=== PATIENT | male | born 1935 | race Caucasian/White ===

== ENCOUNTER 2020-06-05 23:07 | Emergency (ER) | payer OTHER ==
--- OUTSIDE RECORDS SUMMARY | 2020-06-05 23:10 | XMS REPORT | Continuity of Care Document ---
:1935 Author Organization [facility] t Address [address] [place] [address] Care Team Providers Name Role Phone Unavailable Unavailable Unavailable Payers Payer Name Policy Type Policy Number Effective Date Expiration Date S ource Problems This patient has no known problems. Allergies, Adverse Reactions, Alerts Allergy Allergy Status Severity Reaction(s) Onset Inactive Treating Comm ents Source Name Type Date Date Clinician Penicill DA Active [facility] ins 05-22 00:00: [address] Medications This patient has no known medications. Procedures This patient has no known procedures. Results Test Description Test Time Test Comments Results Result Comments Source - XR CHEST 1V 2020-05-24 07:37:00 [facility] : 1935 Sex: M Patient Name: JOSE MANUEL YEE Unit No: [id number] EXAMS: CPT CODE: [id number] XR CHEST 1V 91822 STUDY: Chest radiograph HISTORY: Status post ICD. COMPARISON: 05/23/2020 TECHNIQUE: Frontal view of the chest. SITE: C3 FINDINGS: Dual lead left chest pacemaker/ICD is in similar position. The patient has post median sternotomy. There appear to be clips projecting over the left heart as seen previously, correlate clinically. The cardiac silhouette is stable in size. There is no focal consolidation. There is no large pleural effusion or discernible pneumothorax. IMPRESSION: No evidence for acute pulmonary abnormality. Left dual-lead pacemaker/ICD placement in similar position. at 0737 Reported and signed by: Mariano Jaeger MD CC: Na Hare MD Technologist: Isael Miller, RT(R) Transcrpt Date/Tm/Trnsp: 05/24/2020 (0737) [email or web address] Orig Print D/T: S: 05/24/2020 (0741) [facility] NAME: JOSE MANUEL YEE [id number] PHYS: [place] [address] : 1935 AGE: 85 SEX: M LOC: Z.360 A PHONE #: [phone] EXAM DATE: 05/24/2020 STATUS: ADM IN FAX #: [phone] RADIOLOGY NO: PAGE 1 Signed Report BASIC METABOLIC PANEL 2020-05-24 06:47:00 Test Item Value Reference Range Interpretation Comme nts SODIUM (test code = NA) 140 MMOL/L 137-145 N POTASSIUM (test code = K) 4.4 MMOL/L 3.5-5.1 N CHLORIDE (test code = CL) 106 MMOL/L 98-107 N CARBON DIOXIDE (test code = CO2) 25 MMOL/L 22-30 N GLUCOSE (test code = GLU) 99 MG/DL 74-106 N BLOOD UREA NITROGEN (test code = 19 MG/DL 9-20 N BUN) GLOMERULAR FILTRATION RATE (test > 60 Reporting units: ml/min/1.73 code = GFR) m2 (Modified M DRD Formula)Referen ce Range: > or = 60 ml/min/1.7 3 m2 CREATININE (test code = CREAT) 1.10 MG/DL 0.66-1.25 N CALCIUM (test code = CA) 9.1 MG/DL 8.4-10.2 N CBC W/AUTO [id number] 06:21:00 Test Item Value Reference Range Interpretation Comments WHITE BLOOD CELL (test code = 5.2 K/MM3 3.8-9.8 N WBC) RED BLOOD CELL (test code = 4.01 M/MM3 3.95-5.67 N RBC) HEMOGLOBIN (test code = HGB) 13.0 G/DL 12.4-16.7 N HEMATOCRIT (test code = HCT) 38.3 % 35.9-49.5 N MEAN CELL VOLUME (test code = 96 fL 81.7-96.1 N MCV) MEAN CELL HGB (test code = MCH) 32.4 pg 27.6-33.2 N MEAN CELL HGB CONCETRATION 33.9 % 32.9-35.5 N (test code = MCHC) RED CELL DISTRIBUTION WIDTH 13.1 % 12.1-15.2 N (test code = RDW) PLATELET COUNT (test code = 94 K/MM3 129-368 L PLT) MEAN PLATELET VOLUME (test code 9.0 fl 7.4-10.4 N = MPV) NEUTROPHIL % (test code = NT%) 59.7 % 43-75 N IMMATURE GRANULOCYTE % (test 0.2 % 0.0-2.0 N code = IG%) LYMPHOCYTE % (test code = LY%) 25.7 % 14-44 N MONOCYTE % (test code = MO%) 12.5 % 4-13 N EOSINOPHIL % (test code = EO%) 1.5 % 0-6 N BASOPHIL % (test code = BA%) 0.4 % 0-2 N NUCLEATED RBC % (test code = 0.0 % 0-1.0 N NRBC%) NEUTROPHIL # (test code = NT#) 3.09 K/mm3 2.0-7.6 N IMMATURE GRANULOCYTE # (test 0.01 x10 3/uL 0-0.03 N code = IG#) LYMPHOCYTE # (test code = LY#) 1.33 K/mm3 1.0-3.8 N MONOCYTE # (test code = MO#) 0.65 K/mm3 0.1-0.8 N EOSINOPHIL # (test code = EO#) 0.08 K/mm3 0.0-0.2 N BASOPHIL # (test code = BA#) 0.02 K/mm3 0.0-0.2 N NUCLEATED RBC # (test code = 0.00 K/mm3 0.0-0.1 N NRBC#) - XR CHEST [id number] 10:37:00 [facility] : 1935 Sex: M Patient Name: JOSE MANUEL YEE Unit No: [id number] EXAMS: CPT CODE: [id number] XR CHEST 1V 91697 Location Code: B2 CHEST AP HISTORY: Pacemake r placement COMPARISON: None available FINDINGS: Dual-lead pacemaker/ICD in place with leads at the right atrium and right ventricle. There is mild atherosclerosis at aortic arch. Nonspecific curvilinear calcification superimposes the ventricular shadow (? Coronary calcification). Cardiomediastinal silhouette is otherwise within normal limits. No evidence of consolidation, effusion, or pneumothorax is present. Sternal wires are noted. IMPRESSION: 1. Dual lead pacemaker/ICD.2. No acute findings otherwise. at 1037 Reported and signed by: Alanis Armando MD CC: Na Hare MD Technologist: Mukul Villaseñor (RT) Transcrpt Date/Tm/Trnsp: 05/23/2020 (1037) [id number] Orig Print D/T: S: 05/23/2020 (1040) [facility] NAME: JOSE MANUEL YEE [id number] PHYS: [place] [address] : 07/1934 AGE: 85 SEX: M LOC: [id number] Alexander PHONE #: [phone] EXAM DATE: 05/23/2020 STATUS: ADM IN FAX #: [phone] RADIOLOGY NO: PAGE 1 Signed ReportBASIC METABOLIC PANEL 2020-05-23 07:01:00 Test Item Value Reference Range Interpretation Comments SODIUM (test code = 141 MMOL/L 137-145 N NA) POTASSIUM (test code = 4.2 MMOL/L 3.5-5.1 N K) CHLORIDE (test code = 106 MMOL/L 98-107 N CL) CARBON DIOXIDE (test 27 MMOL/L 22-30 N code = CO2) GLUCOSE (test code = 111 MG/DL 74-106 H GLU) BLOOD UREA NITROGEN 18 MG/DL 9-20 N (test code = BUN) GLOMERULAR FILTRATION > 60 Report ing units: RATE (test code = GFR) ml/mi n/1.73 m2 (Modified MDRD Formula)Referen ce Range: > or = 6 0 ml/min/1.73 m2 CREATININE (test code 1.00 MG/DL 0.66-1.25 N = CREAT) CALCIUM (test code = 9.5 MG/DL 8.4-10.2 N CA) Comments to Brimmer Blocker: NURSE WILL BRING SPECIMEN TO LABIs this a LINE draw? N LIPID PROFILE (CORONARY RISK)2020-05-23 07:01:00 Test Item Value Reference Range Interpretation Comments TRIGLYCERIDES (test 63 MG/DL TRIGLYCE RIDES code = TRIG) REFERENCE RANGE:Normal: < 150 mg/dLBorderline High: 150-199 mg/dLHi gh: 200-499 mg/dLVe ry High: >=500 mg/ dL CHOLESTEROL (test code 141 MG/DL <200 = CHOL) HDL CHOLESTEROL (test 55 MG/DL 40-59 N code = HDL) LIPOPROTEIN LDL (test 59 MG/DL 0-99 N code = LDL) OPTIMAL........ .<100 mg/dLNEAR OPTIMAL/ABOVE OPTIMAL........ .100-12 9 mg/dL BORDERLINE HIGH.........13 0-159 mg/dL HIGH.........16 0-189 mg/dL VERY HIGH...... ...>/= 190 mg/dL Comments to Brimmer Blocker: NURSE WILL BRING SPECIMEN TO LABIs this a LINE draw? N [id number] 07:01:00 Test Item Value Reference Range Interpretation Comments MAGNESIUM (test code = MAG) 2.1 MG/DL 1.6-2.3 N Comments to Brimmer Blocker: NURSE WILL BRING SPECIMEN TO LABIs this a LINE draw? N PROTHROMBIN [id number] 07:00:00 Test Item Value Reference Range Interpretation Comments PROTHROMBIN TIME PATIENT 13.0 9.5-12.7 H (test code = PTP) INTERNATIONAL NORMAL RATIO 1.2 0.86-1.14 H T he INR is to be used (test code = INR) only for m onitoring oral anticoagulantth erapy. INDICATION INR VALUE ------- ------- -----1. Prophylaxis, d eep venous thrombos is, including high risk surgery. 2.0 - 3.0 2. Prophylaxis, de ep venous thrombos is, hip surgery, tr eatment for deep venous thrombosis or pulmonary preve ntion of systemic embolism in pat ients with valvula r heart disease, atrial fibrillation, tissue heart va lve, or acute myocardia l infarction. 2.0 - 3.0 3. Mechanical pros thesis heart valves, recurrent syste monique embolism. 3.0 - 4.5 Comments to Brimmer Blocker: NURSE WILL BRING SPECIMEN TO LABPTT ACTIVATED 2020-05-23 07:00:00 Test Item Value Reference Range Interpretation Comments PTT ACTIVATED (test code = APTT) 31.9 SECONDS 25.1-36.5 N Comments to Brimmer Blocker: NURSE WILL BRING SPECIMEN TO LABBASIC METABOLIC PANEL 2020-05-23 06:51:00 Test Item Value Reference Range Interpretation Comments SODIUM (test code = 141 MMOL/L 137-145 N NA) POTASSIUM (test code = 4.2 MMOL/L 3.5-5.1 N K) CHLORIDE (test code = 106 MMOL/L 98-107 N CL) CARBON DIOXIDE (test 27 MMOL/L 22-30 N code = CO2) GLUCOSE (test code = 111 MG/DL 74-106 H GLU) BLOOD UREA NITROGEN 18 MG/DL 9-20 N (test code = BUN) GLOMERULAR FILTRATION > 60 Report ing units: RATE (test code = GFR) ml/mi n/1.73 m2 (Modified MDRD Formula)Referen ce Range: > or = 6 0 ml/min/1.73 m2 CREATININE (test code 1.00 MG/DL 0.66-1.25 N = CREAT) CALCIUM (test code = 9.5 MG/DL 8.4-10.2 N CA) Comments to Brimmer Blocker: NURSE WILL BRING SPECIMEN TO LABIs this a LINE draw? N LIPID PROFILE (CORONARY RISK)2020-05-23 06:51:00 Test Item Value Reference Range Interpretation Comments TRIGLYCERIDES (test 63 MG/DL TRIGLYCE RIDES code = TRIG) REFERENCE RANGE:Normal: < 150 mg/dLBorderline High: 150-199 mg/dLHi gh: 200-499 mg/dLVe ry High: >=500 mg/ dL CHOLESTEROL (test code 141 MG/DL <200 = CHOL) HDL CHOLESTEROL (test 55 MG/DL 40-59 N code = HDL) LIPOPROTEIN LDL (test MG/DL 0-99 code = LDL) Comments to Brimmer Blocker: NURSE WILL BRING SPECIMEN TO LABIs this a LINE draw? N [id number] 06:51:00 Test Item Value Reference Range Interpretation Comments MAGNESIUM (test code = MAG) 2.1 MG/DL 1.6-2.3 N Comments to Brimmer Blocker: NURSE WILL BRING SPECIMEN TO LABIs this a LINE draw? N CBC W/AUTO [id number] 06:28:00 Test Item Value Reference Range Interpretation Comments WHITE BLOOD CELL (test code = 3.6 K/MM3 3.8-9.8 L WBC) RED BLOOD CELL (test code = 4.10 M/MM3 3.95-5.67 N RBC) HEMOGLOBIN (test code = HGB) 13.4 G/DL 12.4-16.7 N HEMATOCRIT (test code = HCT) 40.2 % 35.9-49.5 N MEAN CELL VOLUME (test code = 98 fL 81.7-96.1 H MCV) MEAN CELL HGB (test code = MCH) 32.7 pg 27.6-33.2 N MEAN CELL HGB CONCETRATION 33.3 % 32.9-35.5 N (test code = MCHC) RED CELL DISTRIBUTION WIDTH 13.1 % 12.1-15.2 N (test code = RDW) PLATELET COUNT (test code = 90 K/MM3 129-368 L PLT) MEAN PLATELET VOLUME (test code 8.8 fl 7.4-10.4 N = MPV) NEUTROPHIL % (test code = NT%) 63.6 % 43-75 N IMMATURE GRANULOCYTE % (test 0.0 % 0.0-2.0 N code = IG%) LYMPHOCYTE % (test code = LY%) 24.1 % 14-44 N MONOCYTE % (test code = MO%) 10.9 % 4-13 N EOSINOPHIL % (test code = EO%) 1.1 % 0-6 N BASOPHIL % (test code = BA%) 0.3 % 0-2 N NUCLEATED RBC % (test code = 0.0 % 0-1.0 N NRBC%) NEUTROPHIL # (test code = NT#) 2.27 K/mm3 2.0-7.6 N IMMATURE GRANULOCYTE # (test 0.00 x10 3/uL 0-0.03 N code = IG#) LYMPHOCYTE # (test code = LY#) 0.86 K/mm3 1.0-3.8 L MONOCYTE # (test code = MO#) 0.39 K/mm3 0.1-0.8 N EOSINOPHIL # (test code = EO#) 0.04 K/mm3 0.0-0.2 N BASOPHIL # (test code = BA#) 0.01 K/mm3 0.0-0.2 N NUCLEATED RBC # (test code = 0.00 K/mm3 0.0-0.1 N NRBC#) Comments to Brimmer Blocker: NURSE WILL BRING SPECIMEN TO LABIs this a LINE draw? N COVID 19 Asymptomatic IH [id number] 04:56:00 Test Item Value Reference Range Interpretation Comments COVID 19 NEGATIVE Negative "Negative resul ts from Asymptomatic IH AG patients with symptom (test code = onset beyondfiv e days, COVNONPUIAG) should be [place] as presumptive, andconfirmation with a molecular assay , if necessary forpa tient management may be performed. Nega tive results do notr ule out COVID-19 and sh ould not be used as the sole basisfor treatm ent or patient managem ent decisions, includinginfect ion control decisio ns. Negative result s should beconsidered in the context of a pa tients recent exposure s,history, and the presenc e of clinical signs and symptomsconsist ent with COVID-19.This t est detects both vi able andnon-viable S ARS-CoV and SARS CoV-2. Test performance dep endson the amount of virus (antigen) in the sample."
[2020-06-05 23:50] LABS: Absolute Lymphocytes (CBC) 1.2 K/uL (0.7-4.9); Basophils % 0.3 % (0-1.3); Hematocrit 37.6 % (39.6-49.0); Lymphocytes % 30.5 % (15.3-44.8); MPV 7.5 fL (7.6-11.3); Protime INR 1.49; RBC Red Blood Cell Count 3.97 M/uL (4.33-5.43)
[2020-06-06 00:02] LABS: ALT/SGPT 26 U/L (12-78); AST/SGOT 19 U/L (15-37); Alkaline Phosphatase 91 U/L (45-117); BUN Blood Urea Nitrogen 16 mg/dL (7-18); Bicarbonate 29 mmol/L (21-32); Bilirubin Direct 0.2 mg/dL (0-0.2); Bilirubin Total 0.6 mg/dL (0.2-1.0); Glucose Level 119 mg/dL (74-106); NT PRO-BNP 106 pg/mL (<450); Potassium 3.7 mmol/L (3.5-5.1); Sodium Level 143 mmol/L (136-145); Troponin (Emerg Dept Use Only) < 0.02 ng/mL (0.0-0.045)
--- NOTE | 2020-06-06 00:57 | EDPHYS ---
Physician Documentation [facility] Name: Julius Pink Age: 85 yrs Sex: Male : 1935 Arrival Date: 06/05/2020 Time: 23:10 Bed 6 Private MD: ED Physician Rufino Machado HPI: 06/06 00:16 This 85 yrs old Male presents to ER via EMS with complaints of General jr8 Weakness. 00:16 Onset: The symptoms/episode began/occurred suddenly, today. Patient reports PM jr8 placement 2 weeks ago. This evening he suddenly reports feeling his heart racing with CP. . Historical: - Allergies: 06/05 23:15 PENICILLINS; rr5 - Home Meds: 23:15 amlodipine 10 mg tab .5 tab once daily [Active]; Xarelto 20 mg oral tab 1 tab once rr5 daily [Active]; losartan 100 mg oral tab 1 tab once daily [Active]; turmeric 2000 2x aday [Active]; aspirin 81 mg Oral chew 1 tab once daily [Active]; Centrum Silver oral oral [Active]; Fish Oil oral oral [Active]; - PMHx: 23:15 Hypertension; rr5 - PSHx: 23:15 triple bypass; pacemaker/defibrillator; rr5 - Immunization history:: Adult Immunizations unknown. - Social history:: Smoking status: unknown Patient/guardian denies using street drugs. ROS: 06/06 00:17 Neck: Negative for injury, pain, and swelling, Respiratory: Negative for shortness of jr8 breath, cough, wheezing, and pleuritic chest pain, Abdomen/GI: Negative for abdominal pain, nausea, vomiting, diarrhea, and constipation, MS/Extremity: Negative for injury and deformity, Skin: Negative for injury, rash, and discoloration, Neuro: Negative for headache, weakness, numbness, tingling, and seizure. Cardiovascular: Positive for chest pain, palpitations. Exam: 00:17 Neck: Trachea midline, no thyromegaly or masses palpated, and no cervical jr8 lymphadenopathy. Supple, full range of motion without nuchal rigidity, or vertebral point tenderness. No Meningismus. Respiratory: Lungs have equal breath sounds bilaterally, clear to auscultation and percussion. No rales, rhonchi or wheezes noted. No increased work of breathing, no retractions or nasal flaring. Abdomen/GI: Soft, non-tender, with normal bowel sounds. No distension or tympany. No guarding or rebound. No evidence of tenderness throughout. Back: No spinal tenderness. No costovertebral tenderness. Full range of motion. MS/ Extremity: Pulses equal, no cyanosis. Neurovascular intact. Full, normal range of motion. Neuro: Awake and alert, GCS 15, oriented to person, place, time, and situation. Cranial nerves II-XII grossly intact. Motor strength 5/5 in all extremities. Sensory grossly intact. Cerebellar exam normal. Normal gait. 00:17 Chest/axilla: Inspection: PM upper L chest wall ecchymosis with surgical wound clean,dry, and intact, Palpation: is normal. 00:17 Cardiovascular: Rate: actual rate is 95 bpm, PM with PVCs, Rhythm: irregular. Vital Signs: 06/05 23:11 Temp 97.8; Weight 86.18 kg; Height 5 ft. 8 in. (172.72 cm); Pain 0/10; rr5 23:21 BP 177 / 72; Pulse 58; Resp 20; Pulse Ox 96% ; ea 06/06 00:38 BP 124 / 59; Pulse 59; Resp 19; Pulse Ox 98% ; rr5 01:00 BP 123 / 61; Pulse 57; Resp 18; Pulse Ox 98% on R/A; ea 06/05 23:11 Body Mass Index 28.89 (86.18 kg, 172.72 cm) rr5 MDM: 06/05 23:20 Patient medically screened. 8 06/06 00:19 Data reviewed: vital signs, nurses notes, lab test result(s), EKG, radiologic studies. 8 Data interpreted: phototypesetting equipment monitor: rate is 94 beats/min, rhythm is irregular, Pulse oximetry: on room air is 96 %. Interpretation: acceptable. 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 ED course: Patients pacemaker firing appropriately on ECG. No lab or imaging abnormalities. ECG with occasional premature beats. Patient feeling well at this time. Discussed with him that it could be the premature beats or other arrhythmia but none seen on ECG at this time. Recommend f/u with Dr. Hare which he has appointment with on Monday. Knows to come back if worse . 06/05 23:20 Order name: Basic Metabolic Panel 06/05 23:20 Order name: CBC with Diff 06/05 23:20 Order name: LFT's 06/05 23:20 Order name: Magnesium; Complete Time: 00:03 06/05 23:20 Order name: NT PRO-BNP; Complete Time: 00:03 06/05 23:20 Order name: PT-INR; Complete Time: 00:03 06/05 23:20 Order name: Troponin (emerg Dept Use Only); Complete Time: 00:03 06/05 23:20 Order name: EKG; Complete Time: 23:21 06/05 23:20 Order name: Cardiac monitoring; Complete Time: 23:20 06/05 23:20 Order name: EKG - Nurse/Tech; Complete Time: 23:20 06/05 23:20 Order name: IV Saline Lock; Complete Time: 23:35 06/05 23:20 Order name: Labs collected and sent; Complete Time: 23:21 06/05 23:20 Order name: O2 Per Protocol; Complete Time: 23:23 06/05 23:20 Order name: O2 Sat Monitoring; Complete Time: 23:23 06/05 23:20 Order name: XRAY Chest (1 view) [facility] 06/05 23:20 Order name: EKG; Complete Time: 23:21 [facility] 06/05 23:20 Order name: Cardiac monitoring; Complete Time: 23:34 [facility] 06/05 23:20 Order name: EKG - Nurse/Tech; Complete Time: 23:34 [facility] 06/05 23:20 Order name: IV Saline Lock; Complete Time: 23:34 [facility] 06/05 23:20 Order name: Basic Metabolic Panel; Complete Time: 00:03 EDMS 06/05 23:20 Order name: CBC with Automated Diff; Complete Time: 00:03 EDMS 06/05 23:20 Order name: Liver (Hepatic) Function; Complete Time: 00:03 EDMS Administered Medications: No medications were administered Disposition: 01:35 Co-signature as Attending Physician, Rufino Machado MD. rn Disposition: 06/06/20 00:57 Discharged to Home. Impression: Palpitations, Weakness. - Condition is Stable. - Discharge Instructions: Holter Monitoring, Palpitations, Weakness. - Medication Reconciliation Form, Thank You Letter, Antibiotic Education, Prescription Opioid Use form. - Follow up: Na Hare MD; When: 2 - 3 days; Reason: Recheck today's complaints, Continuance of care, Re-evaluation by your physician. - Problem is new. - Symptoms have improved. Signatures: Dispatcher [employer] EDMS Rufino Machado MD MD rn Roszak, Josh, PA PA jr8 Hortencia Dixon RN RN ea Roque, Raymond, RN RN rr5 Corrections: (The following items were deleted from the chart) 06/05 23:21 23:21 BASIC METABOLIC PANEL+C.LAB.BRZ ordered. EDLA EDLA 23:21 23:21 CBC+H.LAB.BRZ ordered. EDLA EDMS 23:21 23:21 HEPATIC FUNCTION+C.LAB.BRZ ordered. EDLA EDMS 23:21 23:21 MAGNESIUM+C.LAB.BRZ ordered. EDLA EDMS 23:21 23:21 PROBNP+C.LAB.BRZ ordered. EDLA EDMS 23:21 23:21 PROTIME (+INR)+COAG.LAB.BRZ ordered. EDLA EDMS 23:21 23:21 TROPONIN (EMERG DEPT USE ONLY)+C.LAB.BRZ ordered. [facility] EDLA 23:25 23:21 Chest Single View+RAD.RAD.BRZ ordered. [facility] EDLA 23:34 23:20 Labs collected and sent ordered. jr8 rr5 23:34 23:20 Oxygen Per Protocol ordered. jr8 rr5 23:35 23:20 O2 Sat Monitoring ordered. jr8 rr5 06/06 01:13 00:57 06/06/2020 00:57 Discharged to Home. Impression: Palpitations; Weakness. ea Condition is Stable. Forms are Medication Reconciliation Form, Thank You Letter, Antibiotic Education, Prescription Opioid Use. Follow up: Na Hare; When: 2 - 3 days; Reason: Recheck today's complaints, Continuance of care, Re-evaluation by your physician. Problem is new. Symptoms have improved. jr8
--- NOTE | 2020-06-06 00:57 | ER ---
Nurse's Notes [facility] Name: Julius Pink Age: 85 yrs Sex: Male : 1935 Arrival Date: 06/05/2020 Time: 23:10 Bed 6 Private MD: Diagnosis: Palpitations;Weakness Presentation: 06/05 23:11 Coronavirus screen: At this time, the client does not indicate any symptoms associated ea with coronavirus-19. Ebola Screen: No symptoms or risks identified at this time. Initial Sepsis Screen: Does the patient meet any 2 criteria? No. Patient's initial sepsis screen is negative. Does the patient have a suspected source of infection? No. Patient's initial sepsis screen is negative. Risk Assessment: Do you want to hurt yourself or someone else? Patient reports no desire to harm self or others. Onset of symptoms was June 05, 2020. 23:11 Acuity: WILMA 3 ea 23:11 Method Of Arrival: EMS: [facility] ea 23:11 Chief complaint: EMS states: complaint of general weakness started tonight. had put rr5 pacemaker/defibrillator in placed 2 weeks ago. denies pain, no fever. Historical: - Allergies: 23:15 PENICILLINS; rr5 - Home Meds: 23:15 amlodipine 10 mg tab .5 tab once daily [Active]; Xarelto 20 mg oral tab 1 tab once rr5 daily [Active]; losartan 100 mg oral tab 1 tab once daily [Active]; turmeric 2000 2x aday [Active]; aspirin 81 mg Oral chew 1 tab once daily [Active]; Centrum Silver oral oral [Active]; Fish Oil oral oral [Active]; - PMHx: 23:15 Hypertension; rr5 - PSHx: 23:15 triple bypass; pacemaker/defibrillator; rr5 - Immunization history:: Adult Immunizations unknown. - Social history:: Smoking status: unknown Patient/guardian denies using street drugs. Screenin:10 Abuse screen: Denies threats or abuse. Nutritional screening: No deficits noted. ea Tuberculosis screening: No symptoms or risk factors identified. Fall Risk None identified. Assessment: 23:30 General: Appears in no apparent distress. comfortable, Behavior is calm, cooperative, rr5 appropriate for age. Pain: Denies pain. Neuro: Level of Consciousness is awake, alert, obeys commands, Oriented to person, place, time, Reports weakness. Cardiovascular: Reports palpitations, Capillary refill < 3 seconds Patient's skin is warm and dry. Respiratory: Airway is patent Respiratory effort is even, unlabored, Respiratory pattern is regular, symmetrical. GI: No signs and/or symptoms were reported involving the gastrointestinal system. : No signs and/or symptoms were reported regarding the genitourinary system. EENT: No signs and/or symptoms were reported regarding the EENT system. Derm: Skin is intact, is healthy with good turgor, Skin temperature is warm Bruising that is dark purple, yellow, on chest. Musculoskeletal: Capillary refill < 3 seconds. 06/06 00:32 Reassessment: Emili () [id number]. bb 00:38 Reassessment: Patient appears in no apparent distress at this time. Patient is alert, rr5 oriented x 3, equal unlabored respirations, skin warm/dry/pink. awaiting for results. 01:12 Reassessment: Patient and/or family updated on plan of care and expected duration. Pain ea level reassessed. Patient is alert, oriented x 3, equal unlabored respirations, skin warm/dry/pink. Discharge instruction given to patient, verbalized the understanding of instruction. Pt left ED ambulatory tolerating well. Vital Signs: 06/05 23:11 Temp 97.8; Weight 86.18 kg; Height 5 ft. 8 in. (172.72 cm); Pain 0/10; rr5 23:21 BP 177 / 72; Pulse 58; Resp 20; Pulse Ox 96% ; ea 06/06 00:38 BP 124 / 59; Pulse 59; Resp 19; Pulse Ox 98% ; rr5 01:00 BP 123 / 61; Pulse 57; Resp 18; Pulse Ox 98% on R/A; ea 06/05 23:11 Body Mass Index 28.89 (86.18 kg, 172.72 cm) rr5 ED Course: 06/05 23:10 Patient arrived in ED. ea 23:12 Triage completed. ea 23:12 Arm band placed on right wrist. Patient placed in an exam room, on a stretcher, on ea pulse oximetry. 23:12 Patient has correct armband on for positive identification. Placed in gown. Bed in low ea position. Call light in reach. 23:17 Rodriguez, Louie, RN is Primary Nurse. rr5 23:19 Kin Hardwick PA is PHCP. jr8 23:19 Rufino Machado MD is Attending Physician. jr8 23:20 EKG done, by ED staff, reviewed by Kin SEARS. rr5 23:22 Maintain EMS IV. Dressing intact. Good blood return noted. Site clean \T\ dry. Gauge \T\ ea site: 20G RAC. 23:49 XRAY Chest (1 view) In Process Unspecified. EDMS 06/06 00:56 Na Hare MD is Referral Physician. jr8 01:11 No provider procedures requiring assistance completed. IV discontinued, intact, ea bleeding controlled, No redness/swelling at site. Pressure dressing applied. Administered Medications: No medications were administered Outcome: 00:57 Discharge ordered by . jr8 01:12 Discharged to home ambulatory, with family. ea 01:12 Condition: stable 01:12 Discharge instructions given to patient, Instructed on discharge instructions, follow up and referral plans. Demonstrated understanding of instructions, follow-up care. 01:13 Patient left the ED. ea Signatures: Dispatcher [employer] EDMA Jessica Guardado RN RN Kin Chambers PA PA jr8 Hortencia Dixon RN RN ea Roque, Raymond, RN RN rr5 Corrections: (The following items were deleted from the chart) 00:10 06/05 23:30 Derm: Skin is intact, is healthy with good turgor, Skin temperature is warm rr5 rr5 06/06 00:10 06/05 23:30 Musculoskeletal: Capillary refill < 3 seconds, rr5 rr5
[2020-06-06 01:19] VITALS: TEMP 97.8
[2020-06-06 01:21] VITALS: O2SAT 98
[2020-06-06 01:23] VITALS: BP 123/61
--- NOTE | 2020-06-06 08:29 | EKG ---
Test Date: 2020-06-05 Test Time: 23:13:44 Operator Weapon Locating Radar: RR MEASUREMENT RESULTS: Intervals: Rate: 65 TN: QRSD: 160 QT: 464 QTc: 482 Wells: P: TN: QRS: -90 T: 80 INTERPRETIVE STATEMENTS: Ventricular-paced rhythm with occasional premature ventricular complexes Abnormal ECG No previous ECG available for comparison Electronically Signed On 06-06-20 08:28:48 FIRE CHIEF'S AIDE by Juan Luis Gomez
--- NOTE | 2020-06-06 11:28 | RAD REPORT ---
EXAM DESCRIPTION: RAD - Chest Single View - 06/05/2020 11:49 pm CLINICAL HISTORY: CHEST PAIN Chest pain. COMPARISON: No comparisons FINDINGS: Portable technique limits examination quality. The lungs are grossly clear. The heart is normal in size. Dual lead pacer device is present. Sternoto my wires are present. IMPRESSION: No acute intrathoracic process suspected.
== END 2020-06-06 01:13 | disposition home or self-care (01) ==
LOC: ER 23:07
DX: R53.1 Weakness (principal); I10 Essential (primary) hypertension; Z95.810 Presence of automatic (implantable) cardiac defibrillator; Z95.1 Presence of aortocoronary bypass graft; Z88.0 Allergy status to penicillin; Z79.01 Long term (current) use of anticoagulants; Z79.82 Long term (current) use of aspirin
CPT/HCPCS: 36415; 71045; 80048; 80076; 83735; 83880; 84484; 85025; 85610; 93005; 99284

== ENCOUNTER 2022-09-26 23:52 | Emergency (ER) | payer OTHER ==
--- OUTSIDE RECORDS SUMMARY | 2022-09-26 23:55 | XMS REPORT | Continuity of Care Document ---
:1935 Author Organization [facility] t Address [address] [facility] [address] [place] [address] Care Team Providers Name Role Phone Ochoa Alvaro Rasheed Primary Care Physician Na Hare Attending Clinician Unavailable JULIUS AVALOS Attending Clinician Unavailable Julius Avalos MD Attending Clinician Doctor Unassigned, [place] Attending Clinician Unavailable VENKATA ZAMARRIPA Attending Clinician Unavailable Nurse, Adc Pob Immunization Attending Clinician Unavailable Venkata Zamarripa DO Attending Clinician JUANITA SOTO Attending Clinician Unavailable KNOW, DOES_NOT Admitting Clinician Unavailable JULIUS AVALOS Admitting Clinician Unavailable Julius Avalos MD Admitting Clinician Payers Payer Name Policy Type Policy Number Effective Date Expiration Date S [facility] [id number] 2020 [facility] 00:00:00 PPO Problems Condition Condition Condition Status Onset Resolution Last Treating Co mments Source Name Details Category Date Date Treatment Clinician Date No known No known Disease Unive rs active active ity of problems problems [facility] Allergies, Adverse Reactions, Alerts Allergy Allergy Status Severity Reaction(s) Onset Inactive Treating Comm ents Source Name Type Date Date Clinician [place]ic[place] DA Active U UNKNOWN [facility] Penicill DA Active U [facility]- [facility] Sulfa Propensi Active Swelling Hands and Uni vers (Sulfona ty to 7-19 feet ity of mide adverse 00:00: swe [place] Antibiot reaction 00 Medica l ics) s to Branch drug Sulfa Propensi Active Swelling Hands and Uni vers (Sulfona ty to 7-19 feet ity of mide adverse 00:00: swe [place] Antibiot reaction 00 Medica l ics) s to Branch drug SULFA Drug Active Med Swelling Univers (SULFONA Class 7-19 ity of MIDE 00:00: [place] ANTIBIOT 00 Medical ICS) Branch Penicill Propensi Active Hives Univer s ins ty to 6-20 ity of adverse 00:00: [place] reaction 00 Medical s to Branch drug PENICILL Drug Active Med Hives Univers INS Class 6-20 ity of 00:00: [place] 00 Medical Branch Penicill Propensi Active Hives Univer s ins ty to 6-20 ity of adverse 00:00: [place] reaction 00 Medical s to Branch drug Social History Social Habit Start Date Stop Date Quantity Comments Source Exposure to 2022-07-17 2022-07-27 Not sure [facility] SARS-CoV-2 (event) 00:00:00 15:48:00 [facility] Alcohol intake 2015-10-19 2015-10-19 0 /d [facility] 00:00:00 00:00:[address] [facility] Sex Assigned At [birth year] [facility] 00:00:00 00:00:[address] [facility] Smoking Status Start Date Stop Date Source Never smoked tobacco [facility] Medications Ordered Filled Start Stop Current Ordering Indication Dosage Frequency Signature Comments Components Source Medication Medication Date Date Medication? Clinician (SIG) Name Name neomycin-po 2022- No PRN, Unive rs lymyxin-dex 5-10 05-10 Starting ity of amethasone 16:09: 16:13 [place] (MAXITROL) 00 :17 08/03/22 at Med ical 3.5 1109, Branch mg/g-10,000 Until Mon unit/g-0.1 5/10/23 at % 1113, ophthalmic Routine, ointment Intra-op carbachoL 2022- No PRN, Univers (MIOSTAT) 08-03 Starting ity o f 0.01 % 16:06: 16:13 on Mon intraocular 00 :17 08/03/22 at Dc dical injection 1106, Branch Until Mon08/03/22 at 1113, Routine, Intra-op sodium 2022- No PRN, Univers chloride 08-03 Starting ity of (NS) 16:06: 16:13 on Mon [place] injection 00 :17 08/03/22 at [facility] 1106, Branch Until Mon08/03/22 at 1113, Routine, Intra-op dexamethaso 2022- No PRN, Unive rs ne 08-03 Starting ity of (DECADRON 16:06: 16:13 on Mon PHOSPHATE) 00 :17 08/03/22 at [facility] ical injection 1106, Branch Until Mon08/03/22 at 1113, Routine, Intra-op ceFAZolin 2022- No PRN, Univers (ANCEF) 08-03 Starting ity of injection 16:06: 16:13 on Mon 00 :17 08/03/22 at [facility] 1106, Branch Until Mon08/03/22 at 1113, TEVIN, Intra-op EPINEPHrine 2022- No PRN, Unive rs 1:1,000 (1 08-03 Starting ity of mg/mL) 15:58: 16:13 on Mon (ADRENALIN) 00 :17 08/03/22 at Dc dical injection 1058, Branch Until Mon08/03/22 at 1113, Routine, Intra-op balanced 2022- No PRN, Univers salt irrig 08-03 Starting ity of soln comb1 15:58: 16:13 on [place] (BSS PLUS) 00 :17 08/03/22 at [facility] ical ophthalmic 1058, Branch solution Until Mon 500 mL bag 08/03/22 at 1113, Routine, Intra-op chondroitin 2022- No PRN, Unive rs sulf-sod 08-03 Starting ity of hyaluronate 15:55: 16:13 on Mon [place] (DUOVISC 00 :17 08/03/22 at Medic al VISCO 1055, Branch ELASTIC) Until Mon intraocular 08/03/22 at injection 1113, Routine, Intra-op water for 2022- No PRN, Univers irrigation 08-03 05-10 Starting ity of irrigation 15:49: 16:13 on [place] solution 00 :17 08/03/22 at Medic al 1049, Branch Until Mon08/03/22 at 1113, Routine, Intra-op Hyaluronida 2022- No PRN, Unive rs se, Human 08-03- Starting ity o f Recomb. 15:44: 16:13 on Mon [place] (HYLENEX) 00 :17 08/03/22 at [facility] vibha injection 1044, Branch Until Mon08/03/22 at 1113, Routine, Intra-op eye block 2022- No PRN, Univers syringe 11 08-03-10 Starting ity of mL 15:44: 16:13 on Mon [place] 00 :17 08/03/22 at Medical 1044, Branch Until Mon08/03/22 at 1113, Intra-op cyclopent 2022- No .5mL 0.5 mL, Univ ers 1%-tropic 08-03-10 Left Eye, ity of 1%-phenyl 14:45: 14:45 ONCE, 1 [place] 2.5%-ketor 00 :00 dose, On Medic al 0.5% [facility] Branch (MYDRIATIC 08/03/22 at #5) 0945, ophthalmic Routine, solution DSU Pre-op syringe 0.5 mL lactated 2022- No 1000mL at 42 Unive rs ringers IV 5-10 05-10 mL/hr, ity of infusion 14:45: 14:44 1,000 mL, [place] 1,000 mL 00 :00 IV Medical Infusion, Branch ONCE, 1 dose, On Mon08/03/22 at 0945, Routine, DSU Pre-op cyclopent 2022- No .5mL 0.5 mL, Univ ers 1%-tropic 08-03 05-10 Left Eye, ity of 1%-phenyl 14:45: 14:45 ONCE, 1 [place] 2.5%-ketor 00 :00 dose, On Medic al 0.5% Mon Branch (MYDRIATIC 08/03/22 at #5) 0945, ophthalmic Routine, solution DSU Pre-op syringe 0.5 mL lactated 2022- No 1000mL at 42 Unive rs ringers IV 5-10 05-10 mL/hr, ity of infusion 14:45: 14:44 1,000 mL, [place] 1,000 mL 00 :00 IV Medical Infusion, Branch ONCE, 1 dose, On Mon08/03/22 at 0945, Routine, DSU Pre-op rivaroxaban 2022-0 Yes 20mg Take 1 Univ ers 20 mg 5-10 tablet by ity of tablet 12:17: mouth in [place] [address] the Medical morning. Branch clopidogrel 0 Yes 75mg Take 1 Univ ers (PLAVIX) 75 5-10 tablet by ity of mg tablet 12:17: mouth in [facility] 49 the Medical morning. Branch atorvastati Yes 80mg Take 1 Univ ers n (LIPITOR) 5-10 tablet by ity of 80 mg 12:17: mouth in [place] tablet 49 the Medical morning. Branch losartan 25 0 Yes 25mg Take 1 Univ ers mg tablet 5-10 tablet by ity o f 12:17: mouth in [place] [address] the Medical morning. Branch aspirin 81 0 Yes 81mg Take 1 Unive rs mg EC 5-10 tablet by ity of tablet 12:17: mouth in [place] [address] the Medical morning. Branch fish,bora,f Yes 2{capsu Take 2 U nivers lax 5-10 le} capsules ity of oils-om3,6, 12:17: by mouth [place] 9no1 1,200 49 daily. Medical mg Cap Branch MV with 0 Yes 1{tbl} Take 1 Univer s Min-Lycopen 5-10 tablet by ity of e-Lutein 12:17: mouth [place] 0.4 mg-300 49 daily. Medical mcg- 250 Branch mcg Tab rivaroxaban Yes 20mg Take 1 Univ ers 20 mg 5-10 tablet by ity of tablet 12:17: mouth in [place] [address] the Medical morning. Branch clopidogrel 0 Yes 75mg Take 1 Univ ers (PLAVIX) 75 5-10 tablet by ity of mg tablet 12:17: mouth [place] 49 the Medical morning. Branch atorvastati Yes 80mg Take 1 Univ ers n (LIPITOR) 5-10 tablet by ity of 80 mg 12:17: mouth in [place] tablet 49 the Medical morning. Branch losartan 25 Yes 25mg Take 1 Univ ers mg tablet 5-10 tablet by ity o f 12:17: mouth in [place] 49 the Medical morning. Branch aspirin 81 Yes 81mg Take 1 Unive rs mg EC 5-10 tablet by ity of tablet 12:17: mouth in [place] 49 the Medical morning. Branch arnaldo vergara f Yes 2{capsu Take 2 U nivers lax 5-10 le} capsules ity of oils-om3,6, 12:17: by mouth [place] 9no1 1,200 49 daily. Medical mg Cap Branch MV with Yes 1{tbl} Take 1 Univer s Min-Lycopen 5-10 tablet by ity of e-Lutein 12:17: mouth [place] 0.4 mg-300 49 daily. Medical mcg- 250 Branch mcg Tab clopidogrel Yes 75mg Take 75 mg Univers (PLAVIX) 75 7-20 by mouth ity of mg tablet 12:49: daily. [place] 00 Medical Branch atorvastati Yes 80mg Take 80 mg Univers n (LIPITOR) 7-20 by mouth ity of 80 mg 12:49: daily. [place] tablet 00 Medical Branch losartan Yes 100mg Take 100 Univ ers (COZAAR) 7-20 mg by ity of 100 mg 12:49: mouth [place] tablet 00 daily. Medical Branch aspirin 81 Yes 81mg Take 81 mg U nivers mg EC 7-20 by mouth ity of tablet 12:49: daily. [place] 00 Medical Branch arnaldo vergara f Yes 2{capsu Take 2 U nivers lax 7-20 le} capsules ity of oils-om3,6, 12:49: by mouth [place] 9 #1 (OMEGA 00 daily. Medica l 3-6-9) Branch 1,200 mg Cap MV with Yes 1{tbl} Take 1 Univer s Min-Lycopen 7-20 tablet by ity of e-Lutein 12:49: mouth [place] (CENTRUM 00 daily. Medical SILVER) Branch 0.4-300-250 mg-mcg-mcg Tab clopidogrel Yes 75mg Take 75 mg Univers (PLAVIX) 75 7-20 by mouth ity of mg tablet 12:49: daily. [place] 00 Medical Branch atorvastati Yes 80mg Take 80 mg Univers n (LIPITOR) 7-20 by mouth ity of 80 mg 12:49: daily. [place] tablet 00 Medical Branch losartan Yes 100mg Take 100 Univ ers (COZAAR) 7-20 mg by ity of 100 mg 12:49: mouth [place] tablet 00 daily. Medical Branch aspirin 81 Yes 81mg Take 81 mg U nivers mg EC 7-20 by mouth ity of tablet 12:49: daily. [place] 00 Medical Branch arnaldo vergara,f Yes 2{capsu Take 2 U nivers lax 7-20 le} capsules ity of oils-om3,6, 12:49: by mouth [place] 9 #1 (OMEGA 00 daily. Medica l 3-6-9) Branch 1,200 mg Cap MV with Yes 1{tbl} Take 1 Univer s Min-Lycopen 7-20 tablet by ity of e-Lutein 12:49: mouth [place] (CENTRUM 00 daily. Medical SILVER) Branch 0.4-300-250 mg-mcg-mcg Tab traMADOL Yes 50mg Take 1 Tab Uni vers (ULTRAM) 50 6-20 by mouth ity of mg tablet 00:00: every 6 [place] 00 (six) Medical hours as Branch needed for Pain (scale 4-6). traMADOL 0 Yes 50mg Take 1 Tab Uni vers (ULTRAM) 50 6-20 by mouth ity of mg tablet 00:00: every 6 [place] 00 (six) Medical hours as Branch needed for Pain (scale 4-6). traMADOL 2014-0 Yes 50mg Take 1 Tab Uni vers (ULTRAM) 50 6-20 by mouth ity of mg tablet 00:00: every 6 [place] 00 (six) Medical hours as Branch needed for Pain (scale 4-6). traMADOL 2014-0 Yes 50mg Take 1 Tab Uni vers (ULTRAM) 50 6-20 by mouth ity of mg tablet 00:00: every 6 [place] 00 (six) Medical hours as Branch needed for Pain (scale 4-6). Immunizations Ordered Filled Immunization Date Status Comments [facility] Immunization Name Name SARS-COV-2 COVID-19 2021-01-21 Completed Unive rsity of MODERNA 0.25ML 00:00:00 [place] Medi vibha BOOSTER VACCINE Branch SARS-COV-2 COVID-19 2021-01-21 Completed Unive rsity of MODERNA BOOSTER 00:00:00 [place] Med ical VACCINE Branch SARS-COV-2 COVID-19 2021-01-21 Completed Unive rsity of MODERNA 0.25ML 00:00:00 [place] Medi vibha BOOSTER VACCINE Branch SARS-COV-2 COVID-19 2021-01-21 Completed Unive rsity of MODERNA 0.25ML 00:00:00 [place] Medi vibha BOOSTER VACCINE Branch SARS-COV-2 COVID-19 2020-05-04 Completed Unive rsity of MODERNA 12+ YRS 00:00:00 [place] Med ical VACCINE Branch SARS-COV-2 COVID-19 2020-05-04 Completed Unive rsity of MODERNA VACCINE 00:00:00 [place] Med ical Branch SARS-COV-2 COVID-19 2020-05-04 Completed Unive rsity of MODERNA 12+ YRS 00:00:00 [place] Med ical VACCINE Branch SARS-COV-2 COVID-19 2020-05-04 Completed Unive rsity of MODERNA 12+ YRS 00:00:00 [place] Med ical VACCINE Branch SARS-COV-2 COVID-19 2020-04-06 Completed Unive rsity of MODERNA 12+ YRS 00:00:00 [place] Med ical VACCINE Branch SARS-COV-2 COVID-19 2020-04-06 Completed Unive rsity of MODERNA VACCINE 00:00:00 [place] Med ical Branch SARS-COV-2 COVID-19 2020-04-06 Completed Unive rsity of MODERNA 12+ YRS 00:00:00 [place] Med ical VACCINE Branch SARS-COV-2 COVID-19 2020-04-06 Completed Unive rsity of MODERNA 12+ YRS 00:00:00 [place] Med ical VACCINE Branch Vital Signs Vital Name Observation Time Observation Value Comments Source Body height 2022-08-03 16:34:00 172.7 cm Universi ty [facility] Body weight 2022-08-03 16:34:00 90.719 kg Universi ty [facility] BMI 2022-08-03 16:34:00 30.41 kg/m2 Universi ty [facility] Systolic blood 2022-08-03 16:29:00 154 mm[Hg] Univer sity of pressure [facility] Diastolic blood 2022-08-03 16:29:00 63 mm[Hg] Unive rsity of pressure [facility] Respiratory rate 2022-08-03 16:29:00 10 /min Univ ersity of [facility] Oxygen saturation in 2022-08-03 16:29:00 98 /min University of Arterial blood by [facility] Pulse oximetry Branch Heart rate 2022-08-03 16:12:00 56 /min Universi ty [facility] Body temperature 2022-08-03 16:12:00 36.67 Angelica Univ ersity of [facility] Systolic blood 2022-08-03 14:45:00 148 mm[Hg] Univer sity of pressure [facility] Diastolic blood 2022-08-03 14:45:00 58 mm[Hg] Unive rsity of pressure [facility] Heart rate 2022-08-03 14:45:00 55 /min Universi ty [facility] Body temperature 2022-08-03 14:45:00 36.67 Angelica Univ ersity of [facility] Respiratory rate 2022-08-03 14:45:00 16 /min Univ ersity of [facility] Oxygen saturation in 2022-08-03 14:45:00 99 /min University of Arterial blood by [facility] Pulse oximetry Branch Procedures Procedure Date / Time Performing Source Performed Clinician PHACOEMULSIFICATION OF 2022-08-03 Julius Avalos [facility] CATARACT WITH INTRAOCULAR 15:35:00 [facility] LENS IMPLANT ASSIGNMENT OF BENEFITS 2022-07-27 Doctor Unassigned, [facility] 15:14:[address] [place] [facility] SARS-COV-2 COVID-19 VACCINE 2021-01-21 Doctor Unassigned, U [facility] BOOSTER,0.25ML,IM (MODERNA) 14:39:59 [place] [facility] Encounters Start End Encounter Admission Attending Care Care Encounter Source Date/Time Date/Time Type Type Clinicians Facility Department ID 2022-06-09 Outpatient [facility] [id number] [place] 10:47:36 [id number] [facility] 2020-05-26 Inpatient DELMI Hare [facility] [id number] [facility] 13:21:55 Salipedro luis 93 [facility] 2022-08-03 2022-08-03 [facility] [id number] Univers 09:27:00 11:35:00 JULIUS maravilla [facility] 2022-08-03 2022-08-03 [facility] [id number] Univers 09:27:00 11:35:00 Encounter Julius DODSON 350.1.13.10 it[facility] 4.2.[place].2.[place] SUR[place] [id number] [facility] 071 Branch 2022-08-03 2022-08-03 Surgery [facility] [id number] Univers 09:35:00 10:09:00 Julius DODSON 350.1.13.10 ity [facility] 4.2.7.2.686 [place] SUR[place]ICAL [id number] [facility] 020 Branch 2022-07-27 2022-07-27 Orders Doctor ASHISH [id number] Univers 00:00:00 00:00:00 Only Unassigned, NEREYDA 350.1.13.10 ity of [place] [facility] 4.2.7.2.686 [place] [id number] [facility] 009 Branch 2021-01-21 2021-01-21 Outpatient Roderick ZAMARRIPA [facility] [id number] Univers 09:40:00 09:39:55 VENKATA maravilla [facility] 2021-01-21 2021-01-21 Imm/Inj Nurse, Adc Pob Immunization [facility] [id number] Univers 09:39:43 09:39:55 Visit Venkata Zamarripa 350.1.13 .10 ity of [facility] 4.2.7.2.686 [place] PROFESSIO [id number] Dc dical [address] 2020-05-04 2020-05-04 Outpatient Roderick SOTO [facility] [id number] Univers 13:00:00 13:00:00 JUANITA [id number] [facility] 2020-05-04 2020-05-04 Outpatient Roderick SOTO [facility] [id number] Univers 13:00:00 13:00:00 JUANITA [facility] 2020-04-06 2020-04-06 Outpatient Roderick SOTO [facility] [id number] Univers 16:40:00 16:40:00 JUANITA [facility] Results Test Description Test Time Test Comments Results Result Comments Source - XR CHEST 1V 2020-05-24 07:37:00 [facility] 1935 Sex: M Patient Name: JULIUS YEE Unit No: [id number] EXAMS: CPT CODE: [id number] XR CHEST 1V 18325 STUDY: Chest radiograph HISTORY: Status post ICD. [...] Isael Miller, RT(R) Transcrpt Date/Tm/Trnsp: 05/24/2020 (0737) [id number] Orig Print D/T: S: 05/24/2020 (0741) [facility] NAME: JULIUS YEE [id number] [address] PHYS: [place] [address] : 1935 AGE: 85 SEX: M LOC: Romina360 A PHONE #: [phone] EXAM DATE: 05/24/2020 STATUS: ADM IN FAX #: [phone] RADIOLOGY NO: PAGE 1 Signed Report BASIC [...] units: ml/min/1.73 code = GFR) m2 (Modified RD Formula)Referen ce Range: > or = 60 ml/min/1.7 3 m2 CREATININE (test code = CREAT) 1.10 MG/DL 0.66-1.25 N CALCIUM (test code = CA) 9.1 MG/DL 8.4-10.2 N CBC W/AUTO [id number] 06:21:00 Test Item Value Reference Range Interpretation [...] K/mm3 0.0-0.1 N NRBC#) - XR CHEST [id number] 10:37:00 [facility] 1935 Sex: M Patient Name: JULIUS YEE Unit No: [id number] EXAMS: CPT CODE: [id number] XR CHEST 1V 59128 Location Code: B2 CHEST AP HISTORY: Pacemaker placement COMPARISON: None available FINDINGS: Dual-lead pacemaker/ICD in place with leads at the right atrium and right ventricle. There is mild atherosclerosis at aortic arch. Nonspecific curvilinear calcification superimposes the ventricular shadow (? Coronary calcification). Cardiomediastinal silhouette is otherwise within normal limits. No evidence of consolidation, effusion, or pneumothorax is present. Sternal wires are noted. IMPRESSION: 1. Dual lead pacemaker/ICD. 2. No acute findings otherwise. at 1037 Reported and signed by: Alanis Armando MD CC: Na Hare MD Technologist: Mukul Villaseñor (RT) Transcrpt Date/Tm/Trnsp: 05/23/2020 (1037) [email or web address] Orig Print D/T:S: 05/23/2020 (1040) [facility] NAME: JULIUS YEE [address] PHYS: [place] [address] : 1935 AGE: 85 SEX: M LOC: Z.DC4T A PHONE #: [phone] EXAM DATE: 05/23/2020 STATUS: ADM IN FAX #: [phone] RADIOLOGY NO: PAGE 1 Signed ReportBASIC METABOLIC [id number] 07:01:00 Test Item Value Reference Range Interpretation [...] 9.5 MG/DL 8.4-10.2 N CA) Comments to General Contractor: NURSE WILL BRING SPECIMEN TO LABIs this [...] LIPOPROTEIN LDL (test 59 MG/DL 0-99 N OPTIM AL.........<100 code = LDL) mg/dLNEAR OPTIMAL/ABOVE OPTIMAL........ .100-12 9 mg/dL BORDER LINE HIGH.........13 0-159 mg/dL HIGH.........16 0-189 mg/dL VERY HIGH.........>/ = 190 mg/dL Comments to General Contractor: NURSE WILL BRING SPECIMEN TO LABIs this a LINE draw? N [id number] 07:01:00 Test Item Value Reference Range Interpretation Comments MAGNESIUM (test code = MAG) 2.1 MG/DL 1.6-2.3 N Comments to General Contractor: NURSE WILL BRING SPECIMEN TO LABIs this a LINE draw? N PROTHROMBIN [id number] 07:00:00 Test Item Value Reference Range Interpretation Comments PROTHROMBIN TIME PATIENT 13.0 9.5-12.7 H (test code = PTP) INTERNATIONAL NORMAL RATIO 1.2 0.86-1.14 H T he INR is to be used (test code = INR) only for m onitoring oral anticoagulantth erapy. INDICATION INR VALUE ------- ------- -----1. Prophylaxis, de ep venous thrombos is, including high risk surgery. 2.0 - 3.0 2. Prophylaxis, de ep venous thrombos is, hip surgery, treatm ent for deep venous thr ombosis or pulmonary prevention of s ystemic embolism in pat ients with valvular h eart disease, atrial fibrillation, t issue heart valve, or acute myocardial infa rction. 2.0 - 3.0 3. Mechanical pros thesis heart valves, recurrent syste monique embolism. 3.0 - 4.5 Comments to General Contractor: NURSE WILL BRING SPECIMEN TO LABPTT ACTIVATED 2020-05-23 07:00:00 Test Item Value Reference Range Interpretation Comments PTT ACTIVATED (test code = APTT) 31.9 SECONDS 25.1-36.5 N Comments to General Contractor: NURSE WILL BRING SPECIMEN TO LABBASIC METABOLIC [...] 9.5 MG/DL 8.4-10.2 N CA) Comments to General Contractor: NURSE WILL BRING SPECIMEN TO LABIs this [...] MG/DL 0-99 code = LDL) Comments to General Contractor: NURSE WILL BRING SPECIMEN TO LABIs this a LINE draw? N [id number] 06:51:00 Test Item Value Reference Range Interpretation Comments MAGNESIUM (test code = MAG) 2.1 MG/DL 1.6-2.3 N Comments to General Contractor: NURSE WILL BRING SPECIMEN TO LABIs this a LINE draw? N CBC W/AUTO [id number] 06:28:00 Test Item Value Reference Range Interpretation [...] 0.00 K/mm3 0.0-0.1 N NRBC#) Comments to General Contractor: NURSE WILL BRING SPECIMEN TO LABIs this a LINE draw? N COVID 19 Asymptomatic IH [id number] 04:56:00 Test Item Value Reference Range Interpretation Comments COVID 19 NEGATIVE Negative "Negative resul ts from Asymptomatic IH AG patients with symptom (test code = onset beyondfiv e days, COVNONPUIAG) should be treat ed as presumptive, andconfirmation with a molecular assay [...] amount of virus (antigen) in the sample." Notes Date/Time Note Provider Source 2020-05-24 11:58:00-00:00 [id number] [facility] [address] [place] [address] PATIENT NAME: JULIUS YEE ADMIT DATE: 04/28 10/14 ACCOUNT NO: [id number] ROOM NO: [facility] AGE: 85 REPORT TYPE: ELECTROCARDIOGRAM SEX: M ADMITTING PHYSICIAN:Na Hare MD ATTENDING PHYSICIAN:Na Hare MD Order: [id number] Test Reason : S/P PPI/CAD Test Date/Time Stamp: MonMay 24 2020 11:58:23 Blood Pressure : / mmHG Vent. Rate : 064 BPM Atrial Rate : 055 BPM P-R Int : 000 ms QRS Dur : 182 ms QT Int : 496 ms P-R-T Axes : 000 -85 083 degree s QTc Int : 511 ms Demand pacemaker, interpretation is based on int rinsic rhythm AV sequential or dual chamber electronic pacemak er Left axis deviation Abnormal ECG When compared with ECG of 23-MAY-2020 12:47, No significant change was found Confirmed by NA HARE ([id number]) on 05/24/2020 12:12:30 PM Referred By: Na Hare Confirmed by:NA WHIPPLE at 1212 PATIENT NAME: JULIUS YEE [id number] 2020-05-24 07:43:00-00:00 [facility] ([facility] Cardiology Progress Note REPORT#:[id number] REPORT STATUS: Signed DATE:05/24/20 TIME: 0743 PATIENT: JULIUS YEE UNIT #: [id number] ROOM/BED: [facility]-A : 36 AGE: 85 SEX: M ATTEND: Wade Hare MD ADM AUTHOR: Nathanael Hobbs MD * ALL edits or amendments must be made on the [employer]/computer document * Subjective Chief Complaint: Pacemaker Patient reports: No: chest pain, palpitations, shortness of breat h. Objective General VS/I O: 24 hour I O ending at 0700: 05/24 0700 05/23 1900 Intake Total 80 Output Total 220 Balance -140 Intake, Oral 80 Number 0 Incontinent Voids Number Voids 2 Output, Urine 220 Patient 86 kg Weight Weight Stated/Reported Measurement Method Vital Signs: Date Time Temp Pulse Resp B/P B/P Pulse O2 O2 F low FiO2 Mean Ox Delivery Rate 05/24 0729 97.9 58 18 112/52 72.1 96 Room air 05/24 0512 97.0 60 18 115/60 78 98 Room air 05/24 0416 98.6 60 18 115/60 78.6 97 Room air 05/23 2323 97.5 60 18 122/73 89.1 96 Room air 05/23 1831 98.1 59 18 106/48 67.3 96 Room air 05/23 1605 97.7 58 18 130/58 82.1 97 Room air 05/23 1303 97.9 57 16 147/73 97.9 99 Room air PATIENT WEIGHT: Weight (lb): 189 Weight (oz): 9.56 Weight (kg): 86.000 Medications: Active Meds + DC'd Last 24 Hrs Atorvastatin Calcium 80 MG BEDTIME PO Vancomycin HCl 1,000 MG Q12H IV Sodium Chloride 250 ML Rivaroxaban 20 MG C DIN PO Amlodipine Besylate 2.5 MG DAILY PO Aspirin 81 MG DAILY PO Losartan Potassium 100 MG DAILY PO Midazolam HCl 0 .STK-MED ONE .ROUTE (DC) Acetaminophen 650 MG Q4H PRN PRN PO Hydrocodone Bitart/Acetaminophen 1 TAB Q4H PRN P RN PO Ondansetron HCl 4 MG Q8H PRN PRN IV Heparin Sodium/Sodium Chloride 500 ML .STK-MED O NE IV (DC) Fentanyl Citrate 0 .STK-MED ONE .ROUTE (DC) Lidocaine 0 .STK-MED ONE .ROUTE (DC) Midazolam HCl 0 .STK-MED ONE .ROUTE (DC) Vancomycin HCl 0 .STK-MED ONE .ROUTE (DC) Sodium Chloride 1,000 ML Q20H IV Vancomycin HCl 1,000 MG PREOP IV (DC) Sodium Chloride 250 ML Physical Exam General appearance: alert, awake, oriented Head/Eyes: atraumatic, normocephalic ENT: moist mucosal membranes Neck: no JVD Cardiovascular: CV assessment: regular rate and rhythm Respiratory: clear to auscultation, no distress Lower extremity: LE assessment: no edema Musculoskeletal: full range of motion Neuro/DIRECTOR OF CLINICAL APPLICATIONS: alert, oriented X 3, CN II-XII intact Skin: dry, intact, Ecchymosis left axillary. Wound/incision: Location: Left precordium. Site condition: dressing clean dry Psychiatry: normal affect, normal judgment/insig ht, normal mood Results Findings/Data: Laboratory Tests 05/24 0538 Chemistry Sodium (137 - 145 MMOL/L) 140 Potassium (3.5 - 5.1 MMOL/L) 4.4 Chloride (98 - 107 MMOL/L) 106 Carbon Dioxide (22 - 30 MMOL/L) 25 BUN (9 - 20 MG/DL) 19 Creatinine (0.66 - 1.25 MG/DL) 1.10 Glomerular Filtr Rate > 60 Glucose (74 - 106 MG/DL) 99 Calcium (8.4 - 10.2 MG/DL) 9.1 Laboratory Tests 05/24 0538 Hematology WBC (3.8 - 9.8 K/MM3) 5.2 RBC (3.95 - 5.67 M/MM3) 4.01 Hgb (12.4 - 16.7 G/DL) 13.0 Hct (35.9 - 49.5 %) 38.3 MCV (81.7 - 96.1 fL) 96 MCH (27.6 - 33.2 pg) 32.4 MCHC (32.9 - 35.5 %) 33.9 RDW (12.1 - 15.2 %) 13.1 Plt Count (129 - 368 K/MM3) 94 L MPV (7.4 - 10.4 fl) 9.0 Neut % (Auto) (43 - 75 %) 59.7 Lymph % (Auto) (14 - 44 %) 25.7 [place] % (Auto) (4 - 13 %) 12.5 Eos % (Auto) (0 - 6 %) 1.5 Baso % (Auto) (0 - 2 %) 0.4 Neut # (Auto) (2.0 - 7.6 K/mm3) 3.09 Lymph # (Auto) (1.0 - 3.8 K/mm3) 1.33 [place] # (Auto) (0.1 - 0.8 K/mm3) 0.65 Eos # (Auto) (0.0 - 0.2 K/mm3) 0.08 Baso # (Auto) (0.0 - 0.2 K/mm3) 0.02 Immature Gran % (0.0 - 2.0 %) 0.2 Nucleated RBC % (0 - 1.0 %) 0.0 Nucleated RBCs # (Man) (0.0 - 0.1 K/mm3) 0.00 Radiology data: Recent Impressions: RADIOLOGY - XR CHEST 1V 05/23 1005 Report Impression - Status: SIGNED Entered: 05/23/2020 1040 IMPRESSION: 1. Dual lead pacemaker/ICD. 2. No acute findings otherwise. Impression By: RandiEFJackelyn Simms MD RADIOLOGY - XR CHEST 1V 05/24 0611 Report Impression - Status: SIGNED Entered: 05/24/2020 0741 IMPRESSION: No evidence for acute pulmonary abnormality. Left dual-lead pacemaker/ICD placement in simila r position. Impression By: [email or web address] - Mariano Jaeger MD Diagnosis, Assessment Plan Free Text DxA P Notes Free Text DxA P Notes: IMP: SSS s/p PPM PLAN: PPM interrogation. Hold xarelto today. d/c after interrogation if stable f/u with Dr. Hare in one week. at 1544 RPT #:[id number] END OF REPORT 2020-05-23 12:47:00-00:00 [id number] [place] [id number] PATIENT NAME: JULIUS YEE ADMIT DATE: 04/28 10/14 ACCOUNT NO: [id number] ROOM NO: [facility] AGE: 85 REPORT TYPE: ELECTROCARDIOGRAM SEX: M ADMITTING PHYSICIAN:Na Hare MD ATTENDING PHYSICIAN:Na Hare MD Order: [id number] Test Reason : CAD/AV Block, S/P PPI Test Date/Time Stamp: Sat May 23 2020 12:47:47 Blood Pressure : / mmHG Vent. Rate : 057 BPM Atrial Rate : 057 BPM P-R Int : 168 ms QRS Dur : 186 ms QT Int : 498 ms P-R-T Axes : 046 265 038 degree s QTc Int : 484 ms AV sequential or dual chamber electronic pacemak er Abnormal ECG When compared with ECG of 23-MAY-2020 07:18, Significant changes have occurred Confirmed by NA HARE ([id number]) on 05/23/2020 3:56:57 PM Referred By: Na Hare Confirmed by:NA WHIPPLE at 1557 PATIENT NAME: JULIUS YEE ACCOUNT #: [id number] 2020-05-23 12:27:00-00:00 [facility] ([facility]) Hospitalist History Physical REPORT#:[id number] REPORT STATUS: Signed DATE:05/23/20 TIME: 1227 PATIENT: JULIUS YEE UNIT #: [id number] ROOM/BED: [address] : 36 AGE: 85 SEX: M ATTEND: Wade Hare MD ADM AUTHOR: Farrukh Chaney DO R1 * ALL edits or amendments must be made on the el [employer]/computer document * History of Present Illness HPI PCP: PCP: DOES_NOT KNOW HPI: Mr. 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 Hare. He was exper iencing dizziness leading to evaluation with Holter Monitor. The monitor revealed episodes of third- degree AV block despite optimization of medical managment. He is being evaluated after implantation of the pacemaker. He denies abram st pain, dizziness, shortness of breath, nausea and vomiting. History Past Medical Surgical Hx Patient History: 1. HTN (hypertension) 2. AV block 3. CAD (coronary artery disease) 4. Carotid arterial disease 5. Sleep apnea 6. Hx of CABG Social History Alcohol use: Alcohol use Drug use: Denies recreational drugs Smoking status: Smoking status for patients 13 years old or old er: Former Smoker Other social history: Good social support Medication/Allergy-Vaccine Hx Medications: Home Medications: ASPIRIN 81 MG PO DAILY amLODIPine (NORVASC) 2.5 MG PO DAILY ATORVASTATIN (LIPITOR) 80 MG PO DAILY LOSARTAN (COZAAR) 100 MG PO DAILY RIVAROXABAN (XARELTO) 20 MG PO DAILY MULTIVITAMIN (MULTIPLE VITAMIN) 1 TAB PO DAILY [TURMERIC] 500 MG PO DAILY Allergies: Coded Allergies: Penicillins (UNKNOWN 05/22/20) Review of Systems Constitutional: Denies: chills, fatigue, fever. Skin: Denies: bruising, diaphoresis, swelling. Eyes: Denies: visual loss/blurred, eye pain, photophob ia. ENT: Denies: earache, nasal congestion, sore throat. Respiratory: Denies: non productive cough, productive cough ( sputum), SOB. Cardiovascular: Denies: chest pain, edema, palpitations. GI: Denies: abdominal pain, constipation, diarrhea, nausea, vomiting. Musculoskeletal: Denies: extremity pain, lumbar pain, myalgias. Neuro: Denies: dizziness, headache, lightheaded, syncop e. Physical Exam VS/I O: Patient Weight and BMI Weight (kg): BMI: General appearance: alert, awake, oriented, no a cute distress Head/Eyes: atraumatic, clear cornea, EOMI Neck: full range of motion, non-tender, no JVD Cardiovascular: murmur (systolic), pacemaker Respiratory: aerating well, clear to auscultatio n, symmetric expansion Abdomen: obese, non-tender, soft, no distention Extremities: moves all, no calf tenderness, no c yanosis, no edema Neuro/DIRECTOR OF CLINICAL APPLICATIONS: alert, oriented X 3, normal speech Skin: bandage over left chest intact Results Findings/Data: Laboratory Tests: 05/23 05/23 0615 0441 Chemistry Sodium (137 - 145 MMOL/L) 141 Potassium (3.5 - 5.1 MMOL/L) 4.2 Chloride (98 - 107 MMOL/L) 106 Carbon Dioxide (22 - 30 MMOL/L) 27 BUN (9 - 20 MG/DL) 18 Creatinine (0.66 - 1.25 MG/DL) 1.00 Glomerular Filtr Rate > 60 Glucose (74 - 106 MG/DL) 111 H Calcium (8.4 - 10.2 MG/DL) 9.5 Magnesium (1.6 - 2.3 MG/DL) 2.1 Triglycerides (MG/DL) 63 Cholesterol (<200 MG/DL) 141 LDL Cholesterol Measurd (0 - 99 MG/DL) 59 HDL Cholesterol (40 - 59 MG/DL) 55 Coagulation INR (0.86 - 1.14) 1.2 H APTT (25.1 - 36.5 SECONDS) 31.9 PT Patient/Control Mix (9.5 - 12.7) 13.0 H Hematology WBC (3.8 - 9.8 K/MM3) 3.6 L RBC (3.95 - 5.67 M/MM3) 4.10 Hgb (12.4 - 16.7 G/DL) 13.4 Hct (35.9 - 49.5 %) 40.2 MCV (81.7 - 96.1 fL) 98 H MCH (27.6 - 33.2 pg) 32.7 MCHC (32.9 - 35.5 %) 33.3 RDW (12.1 - 15.2 %) 13.1 Plt Count (129 - 368 K/MM3) 90 L MPV (7.4 - 10.4 fl) 8.8 Neut % (Auto) (43 - 75 %) 63.6 Lymph % (Auto) (14 - 44 %) 24.1 [place] % (Auto) (4 - 13 %) 10.9 Eos % (Auto) (0 - 6 %) 1.1 Baso % (Auto) (0 - 2 %) 0.3 Neut # (Auto) (2.0 - 7.6 K/mm3) 2.27 Lymph # (Auto) (1.0 - 3.8 K/mm3) 0.86 L [place] # (Auto) (0.1 - 0.8 K/mm3) 0.39 Eos # (Auto) (0.0 - 0.2 K/mm3) 0.04 Baso # (Auto) (0.0 - 0.2 K/mm3) 0.01 Immature Gran % (0.0 - 2.0 %) 0.0 Nucleated RBC % (0 - 1.0 %) 0.0 Nucleated RBCs # (Man) (0.0 - 0.1 K/mm3) 0.00 Serology SARS-CoV-2 Ag (Rapid) (Negative) NEGATIVE Laboratory Tests 05/23/20 0615: [Embedded Image Not Available] Radiology data: Recent Impressions: RADIOLOGY - XR CHEST 1V 05/23 1005 Report Impression - Status: SIGNED Entered: 05/23/2020 1040 IMPRESSION: 1. Dual lead pacemaker/ICD. 2. No acute findings otherwise. Impression By: [email or web address] Jackelyn Corley MD Diagnosis, Assessment Plan Problem List/A P: 1. Third degree AV block * Dual-chamber permanent pacemaker: 05/23/20 2. First degree AV block 3. HTN (hypertension) 4. CAD (coronary artery disease) 5. Carotid arterial disease 6. Hx of CABG Free Text A P: Pt is an 85 yo male with an extensive history of CAD, carotid disease, HTN, sleep apnea, first degree AV block with episoded of 3rd degree AV block who presented for dual-chamber permanent pacemaker i mplantation by Dr. Hare. Procedure performed on 05/23/20. 05/23/20 * S/p dual-chamber pacemaker implantation * Plan for dc tomorrow Diet: Cardiac DVT: Xarelto Electronically Signed by Farrukh Chaney DO R1 o n 05/24/20 at 0701 RPT #:[id number] END OF REPORT 2020-05-23 12:27:00-00:00 [facility] ([facility]) Hospitalist History Physical REPORT#:[id number] REPORT STATUS: Signed DATE:05/23/20 TIME: 1226 PATIENT: JULIUS YEE UNIT #: [id number] ROOM/BED: [address] : 36 AGE: 85 SEX: M ATTEND: Wade Hare MD ADM AUTHOR: Farrukh Chaney DO R1 * ALL edits or amendments must be made on the [employer]/computer document * Farrukh Chaney 05/23/20 1227: History of Present Illness HPI PCP: PCP: DOES_NOT KNOW HPI: Mr. 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 Hare. He was exper iencing dizziness leading to evaluation with Holter Monitor. The monitor revealed episodes of third- degree AV block despite optimization of medical managment. He is being evaluated after implantation of the pacemaker. He denies abram st pain, dizziness, shortness of breath, nausea and vomiting. History Past Medical Surgical Hx Patient History: 1. HTN (hypertension) 2. AV block 3. CAD (coronary artery disease) 4. Carotid arterial disease 5. Sleep apnea 6. Hx of CABG Social History Alcohol use: Alcohol use Drug use: Denies recreational drugs Smoking status: Smoking status for patients 13 years old or old er: Former Smoker Other social history: Good social support Medication/Allergy-Vaccine Hx Medications: Home Medications: ASPIRIN 81 MG PO DAILY amLODIPine (NORVASC) 2.5 MG PO DAILY ATORVASTATIN (LIPITOR) 80 MG PO DAILY LOSARTAN (COZAAR) 100 MG PO DAILY RIVAROXABAN (XARELTO) 20 MG PO DAILY MULTIVITAMIN (MULTIPLE VITAMIN) 1 TAB PO DAILY [TURMERIC] 500 MG PO DAILY Allergies: Coded Allergies: Penicillins (UNKNOWN 05/22/20) Review of Systems Constitutional: Denies: chills, fatigue, fever. Skin: Denies: bruising, diaphoresis, swelling. Eyes: Denies: visual loss/blurred, eye pain, photophob ia. ENT: Denies: earache, nasal congestion, sore throat. Respiratory: Denies: non productive cough, productive cough ( sputum), SOB. Cardiovascular: Denies: chest pain, edema, palpitations. GI: Denies: abdominal pain, constipation, diarrhea, nausea, vomiting. Musculoskeletal: Denies: extremity pain, lumbar pain, myalgias. Neuro: Denies: dizziness, headache, lightheaded, syncop e. Physical Exam VS/I O: Patient Weight and BMI Weight (kg): BMI: General appearance: alert, awake, oriented, no a cute distress Head/Eyes: atraumatic, clear cornea, EOMI Neck: full range of motion, non-tender, no JVD Cardiovascular: murmur (systolic), pacemaker Respiratory: aerating well, clear to auscultatio n, symmetric expansion Abdomen: obese, non-tender, soft, no distention Extremities: moves all, no calf tenderness, no c yanosis, no edema Neuro/DIRECTOR OF CLINICAL APPLICATIONS: alert, oriented X 3, normal speech Skin: bandage over left chest intact Results Findings/Data: Laboratory Tests: 05/23 05/23 0615 0441 Chemistry Sodium (137 - 145 MMOL/L) 141 Potassium (3.5 - 5.1 MMOL/L) 4.2 Chloride (98 - 107 MMOL/L) 106 Carbon Dioxide (22 - 30 MMOL/L) 27 BUN (9 - 20 MG/DL) 18 Creatinine (0.66 - 1.25 MG/DL) 1.00 Glomerular Filtr Rate > 60 Glucose (74 - 106 MG/DL) 111 H Calcium (8.4 - 10.2 MG/DL) 9.5 Magnesium (1.6 - 2.3 MG/DL) 2.1 Triglycerides (MG/DL) 63 Cholesterol (<200 MG/DL) 141 LDL Cholesterol Measurd (0 - 99 MG/DL) 59 HDL Cholesterol (40 - 59 MG/DL) 55 Coagulation INR (0.86 - 1.14) 1.2 H APTT (25.1 - 36.5 SECONDS) 31.9 PT Patient/Control Mix (9.5 - 12.7) 13.0 H Hematology WBC (3.8 - 9.8 K/MM3) 3.6 L RBC (3.95 - 5.67 M/MM3) 4.10 Hgb (12.4 - 16.7 G/DL) 13.4 Hct (35.9 - 49.5 %) 40.2 MCV (81.7 - 96.1 fL) 98 H MCH (27.6 - 33.2 pg) 32.7 MCHC (32.9 - 35.5 %) 33.3 RDW (12.1 - 15.2 %) 13.1 Plt Count (129 - 368 K/MM3) 90 L MPV (7.4 - 10.4 fl) 8.8 Neut % (Auto) (43 - 75 %) 63.6 Lymph % (Auto) (14 - 44 %) 24.1 [place] % (Auto) (4 - 13 %) 10.9 Eos % (Auto) (0 - 6 %) 1.1 Baso % (Auto) (0 - 2 %) 0.3 Neut # (Auto) (2.0 - 7.6 K/mm3) 2.27 Lymph # (Auto) (1.0 - 3.8 K/mm3) 0.86 L [place] # (Auto) (0.1 - 0.8 K/mm3) 0.39 Eos # (Auto) (0.0 - 0.2 K/mm3) 0.04 Baso # (Auto) (0.0 - 0.2 K/mm3) 0.01 Immature Gran % (0.0 - 2.0 %) 0.0 Nucleated RBC % (0 - 1.0 %) 0.0 Nucleated RBCs # (Man) (0.0 - 0.1 K/mm3) 0.00 Serology SARS-CoV-2 Ag (Rapid) (Negative) NEGATIVE Laboratory Tests 05/23/20 0615: [Embedded Image Not Available] Radiology data: Recent Impressions: RADIOLOGY - XR CHEST 1V 05/23 1005 Report Impression - Status: SIGNED Entered: 05/23/2020 1040 IMPRESSION: 1. Dual lead pacemaker/ICD. 2. No acute findings otherwise. Impression By: RandiEFJackelyn Simms MD Diagnosis, Assessment Plan Problem List/A P: 1. Third degree AV block * Dual-chamber permanent pacemaker: 05/23/20 2. First degree AV block 3. HTN (hypertension) 4. CAD (coronary artery disease) 5. Carotid arterial disease 6. Hx of CABG Free Text A P: Pt is an 85 yo male with an extensive history of CAD, carotid disease, HTN, sleep apnea, first degree AV block with episoded of 3rd degree AV block who presented for dual-chamber permanent pacemaker i mplantation by Dr. Hare. Procedure performed on 05/23/20. 05/23/20 * S/p dual-chamber pacemaker implantation * Plan for dc tomorrow Diet: Cardiac DVT: Xarelto Savanah Rodriguez 05/25/20 1904: Attestations Teaching Physician Attestation 1st visit w/ resident: I was present with the resident during the histo ry and exam. I discussed the case with the resident and . . . agree with the findings and plan as documented i n the resident's note. agree with the findings and plan as documented i n the resident's note EXCEPT: Electronically Signed by Farrukh Chaney DO R1 o n 05/24/20 at 0701 Electronically Signed by Savanah Rodriguez MD on 04/16 at 1904 RPT #:[id number] END OF REPORT 2020-05-23 09:38:00-00:00 [id number] [facility] [address] [place] [address] PATIENT NAME: JULIUS YEE ADMIT DATE: 04/28 10/14 ACCOUNT NO: [id number] ROOM NO: DC4T AGE: 85 REPORT TYPE: CARDIAC CATHETERIZATION REPORT SEX: M ADMITTING PHYSICIAN:Na Hare MD ATTENDING PHYSICIAN:Na Hare MD PROCEDURE DATE: 05/23/2020 PATIENT REGISTRATION SUPERVISOR: Na Hare M.D. TITLE OF THE PROCEDURE: Dual-chamber permanent p acemaker implantation. INDICATION FOR THE PROCEDURE: Symptomatic comple te heart block with long pauses, dizziness, and presyncope in a patient w ith known atherosclerotic cardiovascular disease and first-degree AV block and bifascicular block. ESTIMATED BLOOD LOSS: Minimal. COMPLICATIONS: None. CONTRAST: None. ANESTHESIA: Conscious sedation with Versed and f entanyl and 1% lidocaine for local anesthesia. FINAL DIAGNOSIS: Successful dual-chamber permane nt pacemaker implantation. PROCEDURE IN DETAIL: Please see enclosed report in the chart. Dictated By: Na Hare MD WT: CATH:KATIE/ALIYAH/SABRINA Conf#: [id number]/DID#: [id number] Authenticated by Na Hare MD On 04/28 12:22:49 PM at 1223 PATIENT NAME: JULIUS YEE [id number] 2020-05-23 07:18:00-00:00 [id number] [facility] [address] [place] [address] PATIENT NAME: JULIUS YEE ADMIT DATE: 04/28 10/14 ACCOUNT NO: [id number] ROOM NO: AGE: 85 REPORT TYPE: ELECTROCARDIOGRAM SEX: M ADMITTING PHYSICIAN: ATTENDING PHYSICIAN:Na Hare MD Order: [id number] Test Reason : AV BLOCK Test Date/Time Stamp: Sat May 23 2020 07:18:53 Blood Pressure : / mmHG Vent. Rate : 056 BPM Atrial Rate : 056 BPM P-R Int : 262 ms QRS Dur : 146 ms QT Int : 480 ms P-R-T Axes : 035 035 055 degree s QTc Int : 463 ms Sinus bradycardia with 1st degree AV block Right bundle branch block Abnormal ECG No previous ECGs available Confirmed by NA HARE ([id number]) on 05/23/2020 7:22:39 AM Referred By: Na Hare Confirmed by:NA WHIPPLE at 0722 PATIENT NAME: JULIUS YEE [id number] 2020-05-22 07:19:00-00:00 [id number] [place] [address] PATIENT NAME: JULIUS YEE ADMIT DATE: ACCOUNT NO: [id number] ROOM NO: AGE: 85 REPORT TYPE: PREOP HISTORY AND PHYSICAL SEX: M ADMITTING PHYSICIAN: ATTENDING PHYSICIAN:Na Hare MD PATIENT NAME: JULIUS YEE ADMIT DATE:05/23 ADMISSION DATE: 05/23/2020 PATIENT REGISTRATION SUPERVISOR: Na Hare MD REASON FOR ADMISSION: Dual-chamber permanent pac emaker implantation for third-degree AV block with syncope and dizziness . HISTORY OF PRESENT ILLNESS: Julius is an 85-yea r-old patient of [facility] with known atherosclerotic cardiovascular dis ease. He has had known coronary artery disease, multivessel back in 2007. He has had at that time peripheral catheterization with 50% rig ht carotid disease and 30% on the left and the left vertebral was 80%. His last carotid Dopp ler in November 2019 showed the right carotid 51% to 69% with the left one less than 5 0%. He has had a normal ejection fraction of 55% to 60%, moderate aortic stenosis, had a negative nuclear stress test in May 2018. Lately, he wharton s been having episodes of dizziness and syncope. He had a Holter monitor t hat showed his average heart rate was 52. It goes down t o 27. He had few episodes of third-degree AV block. The longest pause was 3.4. Medicines were adjus roxana and the patient continued to have further symptoms. So off any beta blocke r therapy, he had an event recorder that continued to s how pauses up to 3.4 seconds and one of them was 4.2 on 05/15/2020 that was symptomatic. The patient has a baseline of first-degree AV block and bifascicular block, right bundle-br anch block and left anterior fascicular block and has documented episodes of third-degree AV block with significant pauses. So, he is here for dual-syl blu permanent pacemaker implantation. The patient is right-handed. He is denying any angina at this time. He has chronic dyspnea, which remains unch anged. No TIAs or strokes. PAST MEDICAL THERAPY: Remark able for the above in addition to paroxysmal atrial fibrillation, paroxysmal supraventricular tachyc ardia, hypertension, hyperlipidemia, carotid disease as mentioned abo ve, osteoarthritis, and sleep apnea. PAST SURGICAL HISTORY: He has had a bypass on , triple bypass. He has had skin graft to the left leg, carpal tunne l on both sides, skin cancer removal. ALLERGIES: PENICILLIN AND SULFA. MEDICATIONS: Aspirin 81 mg daily, fish oil, amlo dipine 2.5 mg daily, atorvastatin 80 mg daily, losartan 100 m g daily, and Xarelto 20 mg daily is on hold. PATIENT NAME: JULIUS YEE [id number] SOCIAL HISTORY: There is no history of active sm oking. The patient smoked for more than 10 years ago. He drinks social ly. There is no history of street drug use. FAMILY HISTORY: Positive for atherosclerotic cardiovascular disease at an older age. REVIEW OF SYSTEMS: Remarkable for the above-ment ioned dizziness, snoring, decreased hearing, easy bruisability. No acute G I or symptoms. No TIAs or strokes. PHYSICAL EXAMINATION: GENERAL: Reveals a pleasant elderly male, in no acute distress. VITAL SIGNS: Blood pressure 140/70, pulse 65 and regular, respiratory rate 18 and unlabored, and temperature afebrile. HEENT: Head atraumatic and normocephalic. Eyes E NT examination within normal for age. He does have decreased hearing. NECK: Supple. No jugular venous distention, brui ts, or lymphadenopathy. Normal upstroke. LUNGS: Clear and resonant. HEART: Regular rate and rhyt hm with III/ systolic ejection murmur at the left lower sternal border. The patient is bradycardic . No gallops. No rubs. ABDOMEN: Soft. No tenderness, no organomegaly, n o masses or bruits. EXTREMITIES: A 2+ distal pulses. No edema, cyano sis, or clubbing. NEUROLOGIC: Alert and oriented x3. The examinati on appears to be nonfocal. LABORATORY DATA: Pending. Noninvasive cardiovasc ular workup enclosed. IMPRESSION: This is an 85-year-old patient with a long history of coronary artery disease, previous bypass, multiple cardio vascular risk factors, aortic stenosis, who comes in with dizziness and episod es of syncope and presyncope with documented episodes of third-degree AV bloc k and long pauses on top of a first-degree AV block and bifascicular block. Th e patient has had history of paroxysmal atrial fibrillation and parox ysmal supraventricular tachycardia. He is here for a dual-chamber permanent pacemaker i mplantation. RECOMMENDATIONS: The recommendation is to procee d with the above-mentioned procedures. The risks and benefits of e planned procedures were discussed in detail with the patient and his and he is willing to proceed. Rest as per orders. Dictated By: Na Hare MD WT: PREOPHP:BHARAT/ALIYAH/SABRINA Conf#: [id number]/DID#: [id number] Authenticated and Edited by Na Hare MD On 05/22/20 9:28:39 PM PATIENT NAME: JULIUS YEE [id number] at 2131 PATIENT NAME: JULIUS YEE [id number]
[2022-09-27] MEDS ORDERED: NA CHLORIDE 0.9% 500 ML ONE (00:21)
[2022-09-27] MEDS ORDERED: NA CHLORIDE 0.9% 1,000 ML ONE (00:21)
[2022-09-27 00:35] LABS: Absolute Lymphocytes (CBC) 1.3 K/uL (0.7-4.9); Hematocrit 37.6 % (39.6-49.0); Lymphocytes % 30.4 % (15.3-44.8); MCV 95.1 fL (80-100); MPV 6.6 fL (7.6-11.3); RBC Red Blood Cell Count 3.96 M/uL (4.33-5.43)
[2022-09-27 00:38] LABS: Protime INR 1.37
[2022-09-27 00:56] LABS: Albumin 3.9 g/dL (3.4-5.0); Bilirubin Direct 0.2 mg/dL (0-0.2); Bilirubin Indirect, Calculated 0.5 mg/dL (0.2-0.8); Bilirubin Total 0.7 mg/dL (0.2-1.0); Magnesium 2.1 mg/dL (1.6-2.4); Potassium 3.6 mEq/L (3.5-5.1); Protein, Total 6.7 g/dL (6.4-8.2); Thyroid Stimulating Hormone 3.48 uIU/mL (0.358-3.740); Troponin High Sensitivity 11.9 pg/mL (<58.9)
[2022-09-27 01:08] LABS: Specific Gravity 1.008 (1.005-1.030); Urine Bilirubin NEGATIVE (Negative); Urine Blood Negative (Negative); Urine Clarity Clear (Clear); Urine Color Colorless (Yellow); Urine Glucose NEGATIVE (Negative); Urine Protein NEGATIVE (Negative); Urine Urobilinogen Normal (Normal); Urine pH 5.5 (5.0-7.0)
[2022-09-27 01:09] LABS: SARS-CoV-2 Antigen Rapid Res Negative (Negative)
--- NOTE | 2022-09-27 01:47 | EDPHYS ---
Physician Documentation [facility] Name: Julius Pink Age: 87 yrs Sex: Male : 1935 Arrival Date: 09/26/2022 Time: 23:52 Bed 3 Private MD: MARGO Physician Ravinder Kaye HPI: 09/27 01:41 This 87 yrs old Male presents to ER via EMS with complaints of weak , sob , kendra better now. 01:41 at home weak. Onset: The symptoms/episode began/occurred yesterday. Severity of kendra symptoms: At their worst the symptoms were mild in the emergency department the symptoms are unchanged. The patient has not experienced similar symptoms in the past. Historical: - Allergies: 00:02 PENICILLINS; jb4 00:02 Sulfa (Sulfonamide Antibiotics); jb4 - PMHx: 00:02 Hypertension; jb4 - PSHx: 00:02 triple bypass; pacemaker; jb4 ROS: 01:42 Constitutional: Negative for fever, chills, and weight loss, Eyes: Negative for injury, kendra pain, redness, and discharge, ENT: Negative for injury, pain, and discharge, Neck: Negative for injury, pain, and swelling, Cardiovascular: Negative for chest pain, palpitations, and edema, Abdomen/GI: Negative for abdominal pain, nausea, vomiting, diarrhea, and constipation, Back: Negative for injury and pain, : Negative for injury, bleeding, discharge, and swelling, MS/Extremity: Negative for injury and deformity, Skin: Negative for injury, rash, and discoloration, Psych: Negative for depression, anxiety, suicide ideation, homicidal ideation, and hallucinations, Allergy/Immunology: Negative for hives, rash, and allergies, Endocrine: Negative for neck swelling, polydipsia, polyuria, polyphagia, and marked weight changes, Hematologic/Lymphatic: Negative for swollen nodes, abnormal bleeding, and unusual bruising. 01:42 Respiratory: Positive for cough, with no reported sputum. 01:42 Neuro: Positive for weakness. Exam: 01:42 Constitutional: This is a well developed, well nourished patient who is awake, alert, kendra and in no acute distress. Head/Face: Normocephalic, atraumatic. Eyes: Pupils equal round and reactive to light, extra-ocular motions intact. Lids and lashes normal. Conjunctiva and sclera are non-icteric and not injected. Cornea within normal limits. Periorbital areas with no swelling, redness, or edema. ENT: Nares patent. No nasal discharge, no septal abnormalities noted. Tympanic membranes are normal and external auditory canals are clear. Oropharynx with no redness, swelling, or masses, exudates, or evidence of obstruction, uvula midline. Mucous membranes moist. Neck: Trachea midline, no thyromegaly or masses palpated, and no cervical lymphadenopathy. Supple, full range of motion without nuchal rigidity, or vertebral point tenderness. No Meningismus. Chest/axilla: Normal chest wall appearance and motion. Nontender with no deformity. No lesions are appreciated. Cardiovascular: Regular rate and rhythm with a normal S1 and S2. No gallops, murmurs, or rubs. Normal PMI, no JVD. No pulse deficits. Respiratory: Lungs have equal breath sounds bilaterally, clear to auscultation and percussion. No rales, rhonchi or wheezes noted. No increased work of breathing, no retractions or nasal flaring. Abdomen/GI: Soft, non-tender, with normal bowel sounds. No distension or tympany. No guarding or rebound. No evidence of tenderness throughout. Back: No spinal tenderness. No costovertebral tenderness. Full range of motion. Male : Normal genitalia with no discharge or lesions. Skin: Warm, dry with normal turgor. Normal color with no rashes, no lesions, and no evidence of cellulitis. MS/ Extremity: Pulses equal, no cyanosis. Neurovascular intact. Full, normal range of motion. Neuro: Awake and alert, GCS 15, oriented to person, place, time, and situation. Cranial nerves II-XII grossly intact. Motor strength 5/5 in all extremities. Sensory grossly intact. Cerebellar exam normal. Normal gait. Psych: Awake, alert, with orientation to person, place and time. Behavior, mood, and affect are within normal limits. 01:42 ECG was reviewed by the Attending Physician. Vital Signs: 09/26 23:58 BP 174 / 66; Pulse 55; Resp 13; Temp 97.6(O); Pulse Ox 100% on R/A; Weight 90.72 kg jb4 (R); Height 5 ft. 8 in. ; Pain 0/10; 09/27 01:00 BP 145 / 56; Pulse 57; Resp 16; Pulse Ox 100% on R/A; [facility] 02:04 BP 169 / 64; Pulse 57; Resp 16; Pulse Ox 100% on R/A; 4 09/26 23:58 Body Mass Index 30.41 (90.72 kg, 172.72 cm) [facility] 09/26 23:58 Pain Scale: Adult 4 MDM: 00:00 Patient medically screened. [facility] 01:44 Differential diagnosis: Anemia Anxiety Reaction Bronchitis CHF exacerbation, Chronic kendra Obstructive Pulmonary Disease Myocardial Infarction pneumonia, pulmonary edema, Pulmonary Embolism reactive airway disease, Sepsis. Antibiotic administration: Not indicated. Differential Diagnosis sepsis, flu. Immunization status: Pneumococcal vaccine: within last 5 years. Influenza vaccine: within last 5 years. Data reviewed: vital signs, nurses notes, lab test result(s), EKG, radiologic studies, plain films. Consideration of Admission/Observation Escalation of care including admission/observation considered. I considered the following discharge prescriptions or medication management in the emergency department Medications were administered in the Emergency Department. See MAR. Independent interpretation of the following test(s) in the Emergency Department EKG: See my EKG interpretation above. Test considered but Not performed: Ultrasound no 2 d echo. Care significantly affected by the following chronic conditions: Hypertension, pm. Counseling: I had a detailed discussion with the patient and/or guardian regarding: the historical points, exam findings, and any diagnostic results supporting the discharge/admit diagnosis, lab results, radiology results, the need for outpatient follow up, for definitive care, a specification manager, a family practitioner. 09/27 00:01 Order name: Basic Metabolic Panel; Complete Time: 01:40 [facility] 09/27 00:01 Order name: CBC with Diff 09/27 00:01 Order name: LFT's; Complete Time: 01:40 [facility] 09/27 00:01 Order name: Magnesium; Complete Time: 01:40 [facility] 09/27 00:01 Order name: NT PRO-BNP; Complete Time: 01:40 [facility] 09/27 00:01 Order name: PT-INR; Complete Time: 01:40 [facility] 09/27 00:01 Order name: Troponin HS; Complete Time: 01:40 [facility] 09/27 00:01 Order name: Blood Culture Adult (2) [facility] 09/27 00:01 Order name: TSH; Complete Time: 01:40 [facility] 09/27 00:01 Order name: Lactate w/ 2H reflex if indic.; Complete Time: 01:40 [facility] 09/27 00:01 Order name: Urinalysis w/ reflexes [facility] 09/27 00:01 Order name: Lipase; Complete Time: 01:40 [facility] 09/27 00:01 Order name: Flu [facility] 09/27 00:01 Order name: SARS RAPID; Complete Time: 01:40 [facility] 09/27 00:41 Order name: CBC Smear Scan EDMS 09/27 00:01 Order name: XRAY Chest (1 view) [facility] 09/27 00:01 Order name: EKG; Complete Time: 00:03 [facility] 09/27 00:01 Order name: Cardiac monitoring; Complete Time: 00:42 [facility] 09/27 00:01 Order name: EKG - Nurse/Tech; Complete Time: 00:42 [facility] 09/27 00:01 Order name: IV Saline Lock; Complete Time: 00:42 [facility] 09/27 00:01 Order name: Labs collected and sent; Complete Time: 00:42 [facility] 09/27 00:01 Order name: O2 Per Protocol; Complete Time: 00:42 [facility] 09/27 00:01 Order name: O2 Sat Monitoring; Complete Time: 00:42 [facility] EC:42 Rate is 60 beats/min. Rhythm is regular. QRS [place] is Normal. [place] interval is normal. QRS kendra interval is normal. QT interval is normal. No Q waves. T waves are Normal. No ST changes noted. Clinical impression: Abnormal EKG without significant change. Interpreted by me. Reviewed by me. Administered Medications: 00:18 Drug: NS 0.9% IV 500 ml Route: IV; Rate: bolus; Site: right antecubital; jb4 00:18 Drug: NS 0.9% IV 1000 ml Route: IV; Rate: 125 ml/hr; Site: right antecubital; jb4 Disposition Summary: 09/27/22 01:46 Discharge Ordered Location: Home kendra Problem: new kendra Symptoms: have improved kendra Condition: Stable kendra Diagnosis - Weakness kendra - Shortness of breath kendra - Presence of cardiac pacemaker kendra Followup: kendra - With: Private Physician - When: 1 - 2 days - Reason: Recheck today's complaints, Continuance of care, Re-evaluation by your physician Followup: kendra - With: Na Hare MD - When: 2 - 3 days - Reason: Recheck today's complaints, Re-evaluation by your physician Discharge Instructions: - Discharge Summary Sheet kendra - Shortness of Breath, Adult kendra - Weakness kendra - Shortness of Breath, Adult, [id number] kendra - Fatigue kendra - Weakness, [id number] kendra - Deconditioning kendra Forms: - Medication Reconciliation Form kendra - Thank You Letter kendra - Antibiotic Education kendra - Prescription Opioid Use kendra - [email or web address] kendra Signatures: Dispatcher [employer] EDRavinder Luciano MD MD cha Bryson, James, RN RN jb4
--- NOTE | 2022-09-27 01:47 | ER ---
Nurse's Notes [facility] Name: Julius Pink Age: 87 yrs Sex: Male : 1935 Arrival Date: 09/26/2022 Time: 23:52 Bed 3 Private MD: Diagnosis: Weakness;Shortness of breath;Presence of cardiac pacemaker Presentation: 09/26 23:58 Chief complaint: EMS states: Pt reports weakness and palpations since 2pm, denies chest jb4 pain. Has a demand pacemaker. Coronavirus screen: At this time, the client does not indicate any symptoms associated with coronavirus-19. Ebola Screen: No symptoms or risks identified at this time. Initial Sepsis Screen: Does the patient meet any 2 criteria? No. Patient's initial sepsis screen is negative. Does the patient have a suspected source of infection? No. Patient's initial sepsis screen is negative. Risk Assessment: Do you want to hurt yourself or someone else? Patient reports no desire to harm self or others. Onset of symptoms was September 27, 2022. Transition of care: patient was not received from another setting of care. 23:58 Method Of Arrival: EMS: [facility] jb4 23:58 Acuity: WILMA 3 jb4 Historical: - Allergies: 09/27 00:02 PENICILLINS; jb4 00:02 Sulfa (Sulfonamide Antibiotics); jb4 - PMHx: 00:02 Hypertension; jb4 - PSHx: 00:02 triple bypass; pacemaker; jb4 Screenin:04 [facility] ED Fall Risk Assessment (Adult) History of falling in the last 3 months, jb4 including since admission No falls in past 3 months (0 pts) Confusion or Disorientation No (0 pts) Score/Fall Risk Level 0 - 2 = Low Risk Oriented to surroundings, Maintained a safe environment. Abuse screen: Denies threats or abuse. Nutritional screening: No deficits noted. Tuberculosis screening: No symptoms or risk factors identified. Assessment: 00:03 General: Appears in no apparent distress. comfortable, Behavior is calm, cooperative, jb4 appropriate for age. Pain: Denies pain. Neuro: Level of Consciousness is awake, alert, obeys commands, Oriented to person, place, time, situation. Cardiovascular: Patient's skin is warm and dry. Respiratory: Airway is patent Respiratory effort is even, unlabored, Respiratory pattern is regular, symmetrical. GI: No signs and/or symptoms were reported involving the gastrointestinal system. : EENT: No signs and/or symptoms were reported regarding the EENT system. Derm: Skin is intact, Skin is pink, warm \T\ dry. Musculoskeletal: Circulation, motion, and sensation intact. Range of motion: intact in all extremities. 01:00 Reassessment: Patient appears in no apparent distress at this time. Patient and/or jb4 family updated on plan of care and expected duration. Pain level reassessed. Patient is alert, oriented x 3, equal unlabored respirations, skin warm/dry/pink. 02:03 Reassessment: Patient appears in no apparent distress at this time. Patient and/or jb4 family updated on plan of care and expected duration. Pain level reassessed. Patient is alert, oriented x 3, equal unlabored respirations, skin warm/dry/pink. Vital Signs: 09/26 23:58 BP 174 / 66; Pulse 55; Resp 13; Temp 97.6(O); Pulse Ox 100% on R/A; Weight 90.72 kg jb4 (R); Height 5 ft. 8 in. ; Pain 0/10; 09/27 01:00 BP 145 / 56; Pulse 57; Resp 16; Pulse Ox 100% on R/A; jb4 02:04 BP 169 / 64; Pulse 57; Resp 16; Pulse Ox 100% on R/A; jb4 07 23:58 Body Mass Index 30.41 (90.72 kg, 172.72 cm) 4 09/26 23:58 Pain Scale: Adult 4 ED Course: 09/26 23:53 Patient arrived in ED. as6 23:57 Jaiden Lujan, RN is Primary Nurse. jb4 23:59 Ravinder Kaye MD is Attending Physician. [facility] 09/27 00:01 Triage completed. jb4 00:02 Arm band placed on right wrist. jb4 00:10 Inserted saline lock: 20 gauge in left antecubital area, using aseptic technique. Blood mc5 collected. 00:15 Patient has correct armband on for positive identification. Bed in low position. Call 4 light in reach. Side rails up X 1. Client placed on continuous cardiac and pulse oximetry monitoring. NIBP monitoring applied. telemetry monitor on. 00:31 First set of blood cultures drawn by pr. mc5 00:36 Second set of blood cultures drawn by me. 5 00:57 Urine collected: clean catch specimen, clear, Amount Voided: 15mL. 5 01:11 XRAY Chest (1 view) In Process Unspecified. EDMS 01:46 Na Hare MD is Referral Physician. [facility] 02:04 No provider procedures requiring assistance completed. IV discontinued, intact, jb4 bleeding controlled, No redness/swelling at site. Pressure dressing applied. Administered Medications: 00:18 Drug: NS 0.9% IV 500 ml Route: IV; Rate: bolus; Site: right antecubital; jb4 00:18 Drug: NS 0.9% IV 1000 ml Route: IV; Rate: 125 ml/hr; Site: right antecubital; jb4 Medication: 02:04 VIS not applicable for this client. jb4 Outcome: 01:46 Discharge ordered by . [facility] 02:04 Discharged to home ambulatory, with family. jb4 02:04 Condition: stable 02:04 Discharge instructions given to patient, Instructed on discharge instructions, follow up and referral plans. Demonstrated understanding of instructions, follow-up care. 02:05 Patient left the ED. jb4 Signatures: Dispatcher [employer] EDRavinder Luciano MD MD cha Bryson, James, RN RN jb4 Ryan Barry RN RN as6 [place] 5 Corrections: (The following items were deleted from the chart) 00:44 00:08 First set of blood cultures drawn by vin lu mc5
[2022-09-27 02:19] LABS: Blood Morphology Comment NOT SEEN (NOT SEEN); Platelet Estimate DECR; White Blood Cell Scan OK (OK)
[2022-09-27 02:39] VITALS: TEMP 97.6; O2SAT 100
[2022-09-27 02:44] VITALS: BP 169/64
--- NOTE | 2022-09-27 19:40 | RAD REPORT ---
EXAM DESCRIPTION: RAD - Chest Single View - 09/27/2022 1:10 am CLINICAL HISTORY: Cough.. TECHNIQUE: AP portable chest x-ray upright on 09/27/2022, at 00: 05. COMPARISON: None. FINDINGS: Heart: Normal size and configuration. Mediastinal Structures: There is atherosclerosis of the thoracic aorta. Poststernotomy changes are redemonstrated. A dual-chamber transvenous pacemaker is noted on the left. Lung Foley: No active disease. Pulmonary Vascularity: Normal. Pleural Space: No active disease. Bony Structures: Normal. IMPRESSION: 1. No acute cardiopulmonary disease. 2. Atherosclerosis of the thoracic aorta. Electronically signed by: Marty Anthony MD 09/27/2022 1:18 AM CDT Due to temporary technical issues with the PACS/Fluency reporting system, reports are being signed by the in house radiologists without review as a courtesy to insure prompt reporting. The interpreting radiologist is fully responsible for the content of the report.
--- NOTE | 2022-09-28 12:32 | EKG ---
Test Date: 2022-09-27 Test Time: 00:02:25 Medicine Aide: WILFRED MEASUREMENT RESULTS: Intervals: Rate: 60 NM: QRSD: 190 QT: 498 QTc: 498 Register: P: NM: QRS: -73 T: 97 INTERPRETIVE STATEMENTS: V Paced. Abnormal ECG Electronically Signed On 09-28-22 12:32:19 CDT by Luis Thorne
== END 2022-09-27 02:05 | disposition home or self-care (01) ==
LOC: ER 23:52
DX: R53.1 Weakness (principal); R06.02 Shortness of breath; Z95.0 Presence of cardiac pacemaker; I10 Essential (primary) hypertension; Z95.1 Presence of aortocoronary bypass graft; Z20.822 Contact with and (suspected) exposure to COVID-19; Z88.0 Allergy status to penicillin; Z88.2 Allergy status to sulfonamides
CPT/HCPCS: 93005; 87040 ×2; 85025; 80048; 36415; 83735; 87205 ×3; 85610; 80076; 83605; 84443; 81003; 84484; 83690; 83880; 87804 ×2; 71045; 99285; 87811; J7040; J7030